=== PATIENT | male | born 1995 | race Caucasian/White ===

== ENCOUNTER 2016-05-24 19:00 | Emergency (ER) | payer MEDICAID ==
[~2016-05-24] VITALS: Ht 180.3 cm; Wt 101.2 kg
[~2016-05-24 19:00] MED LIST: ACHD5005 PO; AMOX500C2 PO; AMPH20TA2 PO; AMPH25CA3 PO; BPR75T PO; BUPR150T7 PO; CEPH-38 PO; DOCU-143 PO; HYDR-3583 PO; HYDR-3730 PO; HYDR-3812 PO; HYDR1TAB PO; INDO25CA PO; LISDEXAMFETAMINE; NF-ADDXR30 PO; SULF1TAB35 PO; TRAM50TA2 PO
--- OUTSIDE RECORDS SUMMARY | 2016-05-24 19:09 | XMS REPORT | Continuity of Care Document ---
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 ENCOUNTER FOR SCREENING FOR OTHER BACTER 07/14/2015 JAUN DARDEN MD Ot L05.91 PILONIDAL CYST WITHOUT ABSCESS 07/22/2015 HUSSAIN DARDEN MDKI Ot L05.91 PILONIDAL CYST WITHOUT ABSCESS 07/25/2015 KATALINA LAN, JAUN Ot L05.91 PILONIDAL CYST WITHOUT ABSCESS 09/09/2015 DALJIT LAN, JOEL Parks Ot 685.1 PILONIDAL CYST W/O ABSC 09/09/2015 DALJIT LAN, JOEL Parks Ot V72.83 EXAM PRE-OPERATIVE NEC 09/09/2015 DALJIT LAN, JOEL Parks Ot V74.8 SCREEN-BACTERIAL DIS NEC 09/09/2015 DALJIT LAN, JOEL Parks Ot 685.0 PILONIDAL CYST W ABSCESS 09/09/2015 DALJIT LAN, JOEL Parks Ot 685.1 PILONIDAL CYST W/O ABSC 09/09/2015 JOEL BOCANEGRA MD Ot V72.84 EXAM PRE-OPERATIVE NOS 09/09/2015 RENZO SINGH Mendez Ot F10.10 ALCOHOL ABUSE, UNCOMPLICATED 09/09/2015 RENZO SINGH K Ot F12.10 CANNABIS ABUSE, UNCOMPLICATED 09/09/2015 RENZO SINGH Mendez Ot F17.210 NICOTINE DEPENDENCE, CIGARETTES, UNCOMPL 09/09/2015 RENZO SINGH Vanessa Ot R07.89 OTHER CHEST PAIN 09/14/2015 RENZO SINGH Mendez Ot F10.10 ALCOHOL ABUSE, UNCOMPLICATED 09/14/2015 RENZO SINGH Vanessa Ot F12.10 CANNABIS ABUSE, UNCOMPLICATED 09/14/2015 RENZO SINGH Mendez Ot F17.210 NICOTINE DEPENDENCE, CIGARETTES, UNCOMPL 09/14/2015 RENZO DO SINGH Mendez Ot R07.89 OTHER CHEST PAIN 11/15/2015 DALJIT LAN, JOEL Parks Ot 685.1 PILONIDAL CYST W/O ABSC 11/15/2015 DALJIT LAN, JOEL Parks Ot V72.83 EXAM PRE-OPERATIVE NEC 11/15/2015 DALJIT LAN, JOEL Parks Ot V74.8 SCREEN-BACTERIAL DIS NEC 11/15/2015 DALJIT LAN, JOEL Parks Ot 685.0 PILONIDAL CYST W ABSCESS 11/15/2015 JOEL BOCANEGRA MD Ot 685.1 PILONIDAL CYST W/O ABSC 11/15/2015 JOEL BOCANEGRA MD Ot V72.84 EXAM PRE-OPERATIVE NOS 11/16/2015 WILLIE SORIANO DO Ot K37 UNSPECIFIED APPENDICITIS 11/21/2015 WILLIE SORIANO DO Ot K37 UNSPECIFIED APPENDICITIS 11/22/2015 WILLIE SORIANO DO Ot K37 UNSPECIFIED APPENDICITIS 05/24/2016 DALJIT LAN, JOLE Parks Ot 685.1 PILONIDAL CYST W/O ABSC 05/24/2016 JOEL BOCANEGRA MD Ot V72.83 EXAM PRE-OPERATIVE NEC 05/24/2016 DALJIT LAN, JOEL Parks Ot V74.8 SCREEN-BACTERIAL DIS NEC 05/24/2016 JOEL BOCANEGRA MD Ot 685.0 PILONIDAL CYST W ABSCESS 05/24/2016 JOEL BOCANEGRA MD Ot 685.1 PILONIDAL CYST W/O ABSC 05/24/2016 JOEL BOCANEGRA MD Ot V72.84 EXAM PRE-OPERATIVE NOS Procedures Code [place] [address] PSYCH DIAGNOSTIC EVALUATION 11/28/2012 69207 ROUTINE VENIPUNCTURE 12/09/2012 11518 PURE TONE HEARING TEST AIR 12/09/2012 92700 CBC 12/09/2012 41761 LIPID PANEL 12/09 94792 CMP 12/09/2012 67189 TSH 12/09/2012 86.22 EXCIS DEBRIDE OF WOUND, INFECT, OR BURN 01/02/2013 93.57 DRESSING OF WOUND NEC 01/04/2013 93.57 DRESSING OF WOUND NEC 01/05/2013 93.57 DRESSING OF WOUND NEC 01/06/2013 93.57 DRESSING OF WOUND NEC 01/07/2013 Results Test Result Range Complete blood count (CBC) with automated white blood cell (WBC) differential - 11/15/15 10:28 Blood leukocytes automated count (number/volume) 17.7 10*3/ uL 4.3-11.0 Blood erythrocytes automated count (number/volume) 5.37 10*6 /uL 4.35-5.85 Venous blood hemoglobin measurement (mass/volume) 16.7 g/dL 13.3-17.7 Blood hematocrit (volume fraction) 46 % 40-54 Automated erythrocyte mean corpuscular volume 86 [foz_us] 80-99 Automated erythrocyte mean corpuscular hemoglobin (mass per erythrocyte) 31 pg 25-34 Automated erythrocyte mean corpuscular hemoglobin concentration measurement ( mass/volume) 36 g/dL 32-36 Automated erythrocyte distribution width ratio 12.4 % 10.0-14.5 Automated blood platelet count (count/volume) 337 10*3/uL 130-400 Automated blood platelet mean volume measurement 10.8 [foz_ us] 7.4-10.4 Automated blood neutrophils/100 leukocytes 80 % 42-75 Automated blood lymphocytes/100 leukocytes 11 % 12-44 Blood monocytes/100 leukocytes 8 % 0-12 Automated blood eosinophils/100 leukocytes 1 % 0-10 Automated blood basophils/100 leukocytes 0 % 0-10 Blood neutrophils automated count (number/volume) 14.2 10*3 1.8-7.8 Blood lymphocytes automated count (number/volume) 1.9 10*3 1.0-4.0 Blood monocytes automated count (number/volume) 1.4 10*3 0.0-1.0 Automated eosinophil count 0.1 10*3/uL 0.0-0.3 Automated blood basophil count (count/volume) 0.0 10*3/uL 0.0-0.1 Comprehensive metabolic panel - 11/15/15 10:28 Serum or plasma sodium measurement (moles/volume) 139 mmol/ L 135-145 Serum or plasma potassium measurement (moles/volume) 3.8 mmol/L 3.6-5.0 Serum or plasma chloride measurement (moles/volume) 108 mmol /L 98-107 Carbon dioxide 18 mmol/L 21-32 Serum or plasma anion gap determination (moles/volume) 13 mmol/L 5-14 Serum or plasma urea nitrogen measurement (mass/volume) 14 mg/dL 7-18 Serum or plasma creatinine measurement (mass/volume) 0.76 mg /dL 0.60-1.30 Serum or plasma urea nitrogen/creatinine mass ratio 18 NRG Serum or plasma creatinine measurement with calculation of estimated glomerular filtration rate > NRG Serum or plasma glucose measurement (mass/volume) 101 mg/dL 70-105 Serum or plasma calcium measurement (mass/volume) 9.8 mg/dL 8.5-10.1 Serum or plasma total bilirubin measurement (mass/volume) 0.6 mg/dL 0.1-1.0 Serum or plasma alkaline phosphatase measurement (enzymatic activity/volume) 96 U/L 40-136 Serum or plasma aspartate aminotransferase measurement (enzymatic activity/ volume) 27 U/L 5-34 Serum or plasma alanine aminotransferase measurement (enzymatic activity/volume ) 45 U/L 0-55 Serum or plasma protein measurement (mass/volume) 7.8 g/dL 6.4-8.2 Serum or plasma albumin measurement (mass/volume) 4.9 g/dL 3.2-4.5 Blood manual differential performed detection - 11/15/15 10:28 Blood monocytes/100 leukocytes 5 % NRG Manual blood segmented neutrophils/100 leukocytes 78 % NRG Blood band neutrophils/100 leukocytes 2 % NRG Manual blood lymphocytes/100 leukocytes 15 % NRG Manual eosinophils/100 leukocytes in nose 0 % NRG Manual blood basophils/100 leukocytes 0 % NRG Blood erythrocyte morphology finding identification NORMAL NRG Complete urinalysis with reflex to culture - 11/15/15 10:50 Urine color determination YELLOW NRG Urine clarity determination SLIGHTLY CLOUDY NRG Urine pH measurement by test strip 5 5- 9 Specific gravity of urine by test strip 1.030 1.016-1.022 Urine protein assay by test strip, semi-quantitative 1+ NEGATIVE Urine glucose detection by automated test strip NEGATIVE NEGATIVE Erythrocytes detection in urine sediment by light microscopy NEGATIVE NEGATIVE Urine ketones detection by automated test strip NEGATIVE NEGATIVE Urine nitrite detection by test strip NEGATIVE NEGATIVE Urine total bilirubin detection by test strip NEGATIVE NEGATIVE Urine urobilinogen measurement by automated test strip (mass/volume) NORMAL NORMAL Urine leukocyte esterase detection by dipstick 1+ NEGATIVE Automated urine sediment erythrocyte count by microscopy (number/high power field) NONE NRG Automated urine sediment leukocyte count by microscopy (number/high power field ) [HPF] NRG Bacteria detection in urine sediment by light microscopy TRACE NRG Crystals detection in urine sediment by light microscopy NONE NRG Casts detection in urine sediment by light microscopy NONE NRG Mucus detection in urine sediment by light microscopy MODERATE NRG Complete urinalysis with reflex to culture NO NRG Urine drug screening test - 11/15/15 10:50 Urine phencyclidine detection by screening method NEGATIVE NEGATIVE Urine benzodiazepines detection by screening method NEGATIVE NEGATIVE Urine cocaine detection NEGATIVE NEGATIVE Urine amphetamines detection by screening method NEGATIVE NEGATIVE Urine methamphetamine detection by screening method NEGATIVE NEGATIVE Urine cannabinoids detection by screening method POSITIVE NEGATIVE Urine opiates detection by screening method NEGATIVE NEGATIVE Urine barbiturates detection NEGATIVE NEGATIVE Screening urine tricyclic antidepressants detection NEGATIVE NEGATIVE Urine methadone detection by screening method NEGATIVE NEGATIVE Urine oxycodone detection NEGATIVE NEGATIVE Urine propoxyphene detection NEGATIVE NEGATIVE Urine buprenophrine screen NEGATIVE NEGATIVE Methicillin resistant Staphylococcus aureus (MRSA) screening culture - 13:35 Methicillin resistant Staphylococcus aureus (MRSA) screening culture NEG NRG Encounters ACCT No. Visit Date/Time Discharge Status Pt. Type Provider Facility Loc./Unit Complaint [id number] 03/08/2014 10:51:00 03/08/2014 23: 59:59 CLS Outpatient FREDIS YARBROUGH APRN [id number] 02/24/2014 10:42:00 02/24/2014 23: 59:59 CLS Outpatient HOA JEREMIAS QUINTERO Sarah [id number] 10/21/2013 11:51:00 10/21/2013 23: 59:59 CLS Outpatient BE MCNULTY APRN [id number] 06/11/2013 15:25:00 06/11/2013 23: 59:59 CLS Outpatient BE MCNULTY APRN [id number] 12/19/2012 15:40:00 12/19/2012 23: 59:59 CLS Outpatient KERRI FINLEY DO [id number] 12/09/2012 07:54:00 12/09/2012 23: 59:59 CLS Outpatient ENEIDA PIÑA PA-C [id number] 11/27/2012 11:54:00 11/27/2012 23: 59:59 CLS Outpatient JUAN SHEPARD, PEDRO A [id number] 04/22/2012 15:48:00 04/22/2012 23: 59:59 CLS Outpatient BE MCNULTY APRN [id number] 03/31/2012 14:57:00 03/31/2012 23: 59:59 CLS Outpatient [id number] 10/24/2011 13:22:00 10/24/2011 23: 59:59 CLS Outpatient [id number] 07/02/2012 10:56:00 Document Registration
--- NOTE | 2016-05-24 19:40 | Diagnostic Imaging Report ---
Indication: Right elbow injury during skateboarding. Discussion: Three views of the right elbow were obtained, no comparison. Large elbow effusion is present. Suspect nondisplaced right radial head neck fracture. No dislocation. The joint spaces are well-maintained. No radiopaque foreign body. Impression: 1. Suspect nondisplaced proximal radial neck fracture. 2. Large right elbow effusion. Dictated by: Dictated on workstation # [id number]
--- NOTE | 2016-05-24 19:45 | ED Upper Extremity ---
General Chief Complaint: Upper Extremity Stated Complaint: RIGHT ARM INJ Nursing Triage Note: PT REPORTS WAS "RIDING HIS LONG BOARD" WHEN HE FELL ONTO HIS RT ELBOW. NO OBVIOUS DEFORMITY NOTED AT THIS TIME. Nursing Sepsis Screen: No Definite Risk History of Present Illness Time seen by provider: 19:10 Initial Comments Evaluation for right elbow pain, abrasion right proximal tibia and right palm after falling while on his long board. He is right-hand dominant. Onset: just prior to arrival Pain/Injury Location: right elbow Method of Injury: fell Modifying Factors: Improves With Immobilization Associated Symptoms: his tetanus status is not current. Allergies and Home Medications Allergies Coded Allergies: No Known Drug Allergies (Unverified , 04/24/09) Home Medications Docusate Sodium 100 Mg Capsule #60 100 MG PO BID Prescribed by: MARTIR MARIE on 11/16/15 1033 Hydrocodone/Acetaminophen 1 Each Tablet #30 1 TAB PO Q4H PRN PRN MODERATE PAIN Prescribed by: MARTIR MARIE on 11/16/15 1033 Constitutional: no symptoms reported see HPI EENTM: see HPI Respiratory: no symptoms reported see HPI Cardiovascular: no symptoms reported see HPI Gastrointestinal: no symptoms reported Genitourinary: no symptoms reported see HPI Musculoskeletal: see HPI joint pain (right elbow) joint swelling (right elbow) Skin: see HPI other (abrasion right proximal tibia and palm right hand) Psychiatric/Neurological: No Symptoms Reported See HPI All Other Systems Reviewed Negative Unless Noted: Yes Past Tixdjxu-Qfkicl-Uqouoz Hx Patient Social History Alcohol Use: Denies Use Recreational Drug Use: No Drug of Choice: MARIJUANA Smoking Status: Former Smoker Type Used: Cigarettes Recent Foreign Travel: No Contact w/Someone Who Travel: No Recent Infectious Disease Expo: No Recent Hopitalizations: No Immunizations Up To Date Tetanus Booster (TDap): Less than 5yrs PED Vaccines UTD: Yes Date of Pneumonia Vaccine: Jan 07, 2013 Date of Influenza Vaccine: Nov 09, 2014 Seasonal Allergies Seasonal Allergies: No Surgeries HX Surgeries: Yes (PILONIDAL CYST/ABSCESS x2, DENTAL SURGERY,) Respiratory Hx Respiratory Disorders: Yes (X 1 ACUTE BRONCHITIS) Respiratory Disorders: Chronic Bronchitis Cardiovascular Hx Cardiac Disorders: Yes (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 ) Neurological Hx Neurological Disorders: No Reproductive System Hx Reproductive Disorders: No Sexually Transmitted Disease: No HIV/AIDS: No Genitourinary Hx Genitourinary Disorders: No Gastrointestinal Hx Gastrointestinal Disorders: No Musculoskeletal Hx Musculoskeletal Disorders: No Endocrine Hx Endocrine Disorders: No HEENT HX ENT Disorders: No Cancer Hx Cancer: No Psychosocial Hx Psychiatric Problems: Yes (DOES NOT COMPLY WITH MEDICATIONS) Behavioral Health Disorders: ADD/ADHD, Depression Integumentary HX Skin/Integumentary Disorder: Yes (PILONIDAL CYST/ABSCESS) Blood Transfusions Hx Blood Disorders: No Adverse Reaction to a Blood Tr: No Reviewed Nursing Assessment Reviewed/Agree w Nursing PMH: Yes Family Medical History Significant Family History: No Pertinent Family Hx Family Medial History: FH: lung cancer grandmother Physical Exam Vital Signs Vital Sign - Last 12Hours 05/24/16 19:10 Temp 98.0 Pulse 105 Resp 20 B/P 131/92 Pulse Ox 99 O2 Delivery Room Air Capillary Refill : Less Than 3 Seconds General Appearance: WD/WN no apparent distress HEENT: PERRL/EOMI normal ENT inspection TMs normal pharynx normal Neck: non-tender full range of motion supple normal inspection Cardiovascular: normal peripheral pulses regular rate, rhythm no murmur Respiratory: chest non-tender lungs clear normal breath sounds Gastrointestinal: normal bowel sounds non tender soft Back: normal inspection no CVA tenderness no vertebral tenderness Elbow/Forearm: normal inspection, Right, bone tenderness (radial head), limited ROM (secondary to pain), pain, soft tissue tenderness Neurologic/Tendon: normal sensation normal motor functions normal tendon functions Neurologic/Psychiatric: no motor/sensory deficits alert normal mood/affect oriented x 3 Skin: normal color warm/dry other (superficial abrasion to the right proximal tibia and small abrasion to the right palm. Area to the right palm has firmness and possible foreign body noted. Patient does report falling in an area where there were several small rocks.) Lymphatic: no adenopathy I&D : Site: right palm I & D Procedure: betadine prep sterile drapes applied sterile dressing applied Progress Tried to explore the abrasion, patient didn't tolerate secondary to pain. 1 ml of Lidocaine 1% used to anesthetize the skin. The abrasion was then explored, one small pebble was easily removed. The skin was thoroughly irrigated with 200 mils of sterile normal saline. Patient tolerated the procedure well. Progress/Results/Core Measures Results/Orders My Orders Orders-JAZZY LUNDBERG Elbow, Right, 3 Views (05/24/16 19:19) Dipht,Pertuss(Acell),Tet Adult (Boostrix (05/24/16 20:00) Lidocaine 1% Injection (Xylocaine 1% Inj (05/24/16 20:04) Medications Given in ED Current Medications Medications Dose Ordered Sig/Ericka Route Start Time Stop Time Status Last Admin Dose Admin Diphtheria/ Tetanus/Acell Pertussis 0.5 ml ONCE ONCE IM 05/24/16 20:00 05/24/16 20:01 DC 05/24/16 20:05 0.5 ML Vital Signs/I&O Vital Sign - Last 12Hours 05/24/16 05/24/16 19:10 20:50 Temp 98.0 Pulse 105 0 Resp 20 0 B/P 131/92 Pulse Ox 99 0 O2 Delivery Room Air Blood Pressure Mean: 105 Progress Note : Time: 19:10 Progress Note Initial evaluation completed, recommended x-ray of the right elbow, will reevaluate after this is going completed. 1939 Discussed x-ray findings with the patient, nondisplaced radial head fracture with positive fat pad sign noted dislocations noted. 1999 abrasion to the right proximal tibia thoroughly irrigated with 200 mls of sterile normal saline. Triple antibiotic ointment and a nonadherent bulky dressing were applied. Diagnostic Imaging Diagonstic Imaging: Xray Plain Films/CT/US/NM/MRI: elbow Comments NAME: REBECCA HORVATH [facility] REC#: [id number] PT STATUS: REG ER : 1995 PHYSICIAN: JAZZY LUNDBERG ADMIT DATE: 05/24/16/ER Draft Date of Exam:05/24/16 ELBOW, RIGHT, 3 VIEWS Indication: Right elbow injury during skateboarding. Discussion: Three views of the right elbow were obtained, no comparison. Large elbow effusion is present. Suspect nondisplaced right radial head neck fracture. No dislocation. The joint spaces are well-maintained. No radiopaque foreign body. Impression: 1. Suspect nondisplaced proximal radial neck fracture. 2. Large right elbow effusion. Dictated on workstation # [id number] Dict: 05/24/161936 Trans: 05/24/161938 ARMANI [id number] Interpreted by: MIGUEL SY MD Electronically signed by: Departure Impression Impression: Primary Impression: Radial head fracture, closed Qualified Code: S52.124A - Nondisplaced fracture of head of right radius, initial encounter for closed fracture Additional Impression: Abrasion Disposition: 01 HOME, SELF-CARE Condition: Stable Departure-Patient Inst. Referrals: [facility] (PCP/Family) Primary Care Physician Patient Instructions: How to Use a Shoulder Sling, Elbow Fracture (DC) Add. Discharge Instructions: All discharge instructions reviewed with patient and/or family. Voiced understanding. Hi wrap to right elbow when awake, for the next week. Right elbow 20 minutes every 2 hours. Use sling when active, may remove at night for sleeping. Follow-up with orthopedics in one week, see list of local physicians. Clean abrasion to right hand and right leg with peroxide twice a day and apply triple antibiotic treatment. Return to emergency room for increased pain, concerning drainage from right hand or right leg or any new concerns. Tylenol 650 mg every 6 hours, alternating with ibuprofen 600 mg every 8 hours for pain Scripts Tramadol HCl (Ultram)50 Mg [id number] Mg PO Q8H Pain #20 TAB Ref 0 Prov:JAZZY LUNDBERG 05/24/16 Work/School Note: Local Medical Staff Listing, Work Release Form Date Seen in the Emergency Department: May 24, 2016 Return to Work: May 26, 2016 Other Restrictions Listed Below: No use of right arm for 3-4 weeks. Must wear sling. JAZZY LUNDBERG May 24, 2016 19:45
[2016-05-24] MEDS ORDERED: TETANUS,DIPTH,PERTUSS P/F (BOOSTRIX) 0.5 ML VIAL IM ONE (20:00)
[2016-05-24] MEDS ORDERED: LIDOCAINE 1% INJ 20 ML (XYLOCAINE) VIAL INJ STA (20:04)
[2016-05-24 20:50] VITALS: BP 0/0
[2016-05-24] MEDS ORDERED: TRAM-42 PO (23:06)
== END 2016-05-24 20:50 | disposition home or self-care (01) ==
LOC: EDUNIT# 19:00 → ER 19:02
DX: S52.124A Nondisplaced fracture of head of right radius, initial encounter for closed fracture (principal); S60.511A Abrasion of right hand, initial encounter; S50.311A Abrasion of right elbow, initial encounter; M25.421 Effusion, right elbow; Z23 Encounter for immunization; V00.131A Fall from skateboard, initial encounter; Y93.51 Activity, roller skating (inline) and skateboarding; Y99.8 Other external cause status
CPT/HCPCS: 73080; 90471; 90715; 99283

== ENCOUNTER 2017-04-09 20:38 | Emergency (ER) | payer SELFPAY ==
[~2017-04-09] VITALS: Ht 180.3 cm; Wt 98.4 kg
[~2017-04-09 20:38] MED LIST changes: -HYDR-3812 PO; +TRAM-42 PO
--- OUTSIDE RECORDS SUMMARY | 2017-04-09 20:43 | XMS REPORT ---
Author PRINCESS Rosado Organization [employer] Address Unknown Phone Unavailable Care Team Providers Care Laboratory Cureman Name Role Phone PRINCESS GASPAR CP Unavailable Allergies No Known Allergies Problems Problem Type Condition Code Onset Dates Condition Status Problem 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 Active Problem Vomiting alone 787.03 Active Problem Allergic rhinitis, cause unspecified 477.9 Active Problem Acute pharyngitis 462 Active Problem Cough 786.2 Active Problem Pilonidal cyst without mention of abscess 685.1 Active Problem Cellulitis and abscess of unspecified site 682.9 Active Problem Other, multiple, and unspecified sites, insect bite, nonvenomous, without mention of infection 919.4 Active Problem Rash and other nonspecific skin eruption 782.1 Active Problem Depressive disorder, not elsewhere classified 311 Active Problem Viral warts, unspecified 078.10 Active Problem Other psoriasis 696.1 Active Problem Plantar fascial fibromatosis 728.71 Active Problem Acute upper respiratory infections of unspecified site 465.9 Active Problem Esophageal reflux 530.81 Active Medications Medication Code System Code Instructions Start Date End Date Status Dosage Adderall XR [facility] [address]-30 30 MG Jan 23, 2016 TAKE TWO CAPSULES BY MOUTH ONCE DAILY FOR ADHD Results No Known Results Summary Purpose [employer] Submission
--- OUTSIDE RECORDS SUMMARY | 2017-04-09 20:43 | XMS REPORT ---
Author Author LIDIA LARISSA Organization [facility] Address [address] [place] [address] Care Team Providers Care Hand Coremaker Name Role Phone MURILLOWANDY HarperELE Unavailable PROBLEMS Type Condition ICD9-CM Code YOX45-RA Code Onset Dates Condition Status SNOMED Code Problem Pilonidal cyst without mention of abscess 685.1 Active 74851727 Problem Esophageal reflux 530.81 Active 822723988 Problem Cellulitis and abscess of unspecified site 682.9 Active 978743254 Problem Attention deficit hyperactivity disorder (ADHD), combined type F90.2 Active 831801135 Problem Viral warts, unspecified 078.10 Active 19670648 Problem Acute pharyngitis 462 Active 502695722 Problem Acute upper respiratory infections of unspecified site 465.9 Active 12994803 Problem Depressive disorder, not elsewhere classified 311 Active 59393010 Problem Allergic rhinitis, cause unspecified 477.9 Active 76119614 Problem 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 Active Problem Cough 786.2 Active 75033254 Problem Rash and other nonspecific skin eruption 782.1 Active 400023982 Problem Other, multiple, and unspecified sites, insect bite, nonvenomous, without mention of infection 919.4 Active 259058981 Problem Plantar fascial fibromatosis 728.71 Active 67016773 Problem Vomiting alone 787.03 Active 807113245 Problem Other psoriasis 696.1 Active 0404483 ALLERGIES No Known Allergies SOCIAL HISTORY Never Assessed PLAN OF CARE Activity Details Follow Up prn Reason: VITAL SIGNS Height 70 in 2016-04-28 Weight 224.0 lbs 2016-04-28 Temperature 98.9 degrees Fahrenheit 2016-04-28 Heart Rate 76 bpm 2016-04-28 Respiratory Rate 18 2016-04-28 BMI 32.14 kg/m2 2016-04-28 Blood pressure systolic 116 mmHg 2016-04-28 Blood pressure diastolic 70 mmHg 2016-04-28 MEDICATIONS Medication Instructions Dosage Frequency Start Date End Date Duration Status Augmentin 875-125 MG Orally every 12 hrs 1 tablet 12h Apr,Apr 10 day(s) Active Adderall XR 30 MG TAKE TWO CAPSULES BY MOUTH ONCE DAILY FOR ADHD Apr 21 days Active [facility] [phone] MG Active RESULTS No Results PROCEDURES No Known procedures IMMUNIZATIONS No Known Immunizations MEDICAL (GENERAL) HISTORY Type Description Date Surgical History Appendectomy 11/2015 Hospitalization History 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
--- OUTSIDE RECORDS SUMMARY | 2017-04-09 20:43 | XMS REPORT ---
Author Author PRINCESS GASPAR Organization [employer] Address Unknown Phone Unavailable Care Team Providers Care Pile Operator Name Role Phone PRINCESS GASPAR CP Unavailable [...] End Date Status Dosage Adderall XR [facility] [address]-[address] Warren to sign for Checo Once a day for ADHD August 27, 2014 2 capsules Results No Known Results Summary Purpose [employer] Submission
--- OUTSIDE RECORDS SUMMARY | 2017-04-09 20:43 | XMS REPORT ---
Author PRINCESS Rosado Organization [employer] Address Unknown Phone Unavailable Care Team Providers Care Leverman Name Role Phone PRINCESS GASPAR CP Unavailable [...] Date End Date Status Dosage Adderall XR [facility] [address]-[address] Warren to sign for Checo Once a day for ADHD August 27, 2014 2 capsules Results No Known Results Summary Purpose [employer] Submission
--- OUTSIDE RECORDS SUMMARY | 2017-04-09 20:43 | XMS REPORT ---
Author Author PRINCESS GASPAR [facility] [employer] Address Unknown Phone Unavailable Care Team Providers Care Handbook Writer Name Role Phone PRINCESS GASPAR CP Unavailable Allergies No Known Allergies Problems Problem Type Condition ICD-9 Code Onset Dates Condition Status Problem GARDASIL [...] End Date Status Dosage Adderall XR [facility] [address]-99 30 MG Orally Once a day for ADHD August 27, 2014 2 capsules Results No Known Results Summary Purpose [employer] Submission
--- OUTSIDE RECORDS SUMMARY | 2017-04-09 20:43 | XMS REPORT ---
Author Author PRINCESS Irby Organization [facility] Address Unknown Care Team Providers Care Bow Maker Machine Tender Name Role Phone PRINCESS Irby Unavailable PROBLEMS Type Condition ICD9-CM Code [id number] Code Onset Dates Condition Status SNOMED Code Problem Pilonidal cyst without mention of abscess 685.1 Active 72778353 Problem Esophageal reflux 530.81 Active 069104728 Problem Cellulitis and abscess of unspecified site 682.9 Active 286548164 Problem Attention deficit hyperactivity disorder (ADHD), combined type F90.2 Active 474627485 Problem Viral warts, unspecified 078.10 Active 18898253 Problem Acute pharyngitis 462 Active 928018311 Problem Acute upper respiratory infections of unspecified site 465.9 Active 43524289 Problem Depressive disorder, not elsewhere classified 311 Active 22627042 Problem Allergic rhinitis, cause unspecified 477.9 Active 04477737 Problem 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 Active Problem Cough 786.2 Active 31374043 Problem Rash and other nonspecific skin eruption 782.1 Active 007725561 Problem Other, multiple, and unspecified sites, insect bite, nonvenomous, without mention of infection 919.4 Active 142263891 Problem Plantar fascial fibromatosis 728.71 Active 46639481 Problem Vomiting alone 787.03 Active 231790282 Problem Other psoriasis 696.1 Active 5035894 ALLERGIES Unknown Allergies SOCIAL HISTORY No smoking Hx information available PLAN OF CARE VITAL SIGNS MEDICATIONS Medication Instructions Dosage Frequency Start Date End Date Duration Status Adderall XR 30 MG TAKE TWO CAPSULES BY MOUTH ONCE DAILY FOR ADHD Apr 21 days Active RESULTS No Results PROCEDURES No Known procedures IMMUNIZATIONS No Known Immunizations
--- OUTSIDE RECORDS SUMMARY | 2017-04-09 20:43 | XMS REPORT ---
Author Author PRINCESS Irby Organization [facility] Address Unknown Care Team Providers Care Vice President Integrated Name Role Phone PRINCESS Irby Unavailable PROBLEMS Type Condition ICD9-CM Code [id number] Code Onset Dates Condition Status SNOMED Code Problem Pilonidal cyst without mention of abscess 685.1 Active 51546718 Problem Esophageal reflux 530.81 Active 443571735 Problem Cellulitis and abscess of unspecified site 682.9 Active 876563930 Problem Attention deficit hyperactivity disorder (ADHD), combined type F90.2 Active 707892390 Problem Viral warts, unspecified 078.10 Active 14254137 Problem Acute pharyngitis 462 Active 431868631 Problem Acute upper respiratory infections of unspecified site 465.9 Active 70845865 Problem Depressive disorder, not elsewhere classified 311 Active 99669279 Problem Allergic rhinitis, cause unspecified 477.9 Active 95175399 Problem 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 Active Problem Cough 786.2 Active 74585695 Problem Rash and other nonspecific skin eruption 782.1 Active 168868506 Problem Other, multiple, and unspecified sites, insect bite, nonvenomous, without mention of infection 919.4 Active 554157821 Problem Plantar fascial fibromatosis 728.71 Active 86500257 Problem Vomiting alone 787.03 Active 587777766 Problem Other psoriasis 696.1 Active 4116300 ALLERGIES No Information SOCIAL HISTORY Never Assessed PLAN OF CARE VITAL SIGNS MEDICATIONS Medication Instructions Dosage Frequency Start Date End Date Duration Status Adderall XR 30 MG TAKE TWO CAPSULES BY MOUTH ONCE DAILY FOR ADHD Apr 28 days Active RESULTS No Results PROCEDURES No Known procedures IMMUNIZATIONS No Known Immunizations MEDICAL (GENERAL) HISTORY Type Description Date Surgical History Appendectomy 11/2015 Hospitalization History 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
--- OUTSIDE RECORDS SUMMARY | 2017-04-09 20:43 | XMS REPORT ---
Author Author PRINCESS GASPAR Organization [facility] Address Unknown Care Team Providers Care Lead Shop Operator Name Role Phone PRINCESS GASPAR Unavailable PROBLEMS Type Condition ICD9-CM Code UQQ18-CL Code Onset Dates Condition Status SNOMED Code Problem Allergic rhinitis, cause unspecified 477.9 Active 55785633 Problem Other, multiple, and unspecified sites, insect bite, nonvenomous, without mention of infection 919.4 Active 237794857 Problem Vomiting alone 787.03 Active 820715742 Problem Pilonidal cyst without mention of abscess 685.1 Active 25319854 Problem Acute pharyngitis 462 Active 770069255 Problem Depressive disorder, not elsewhere classified 311 Active 58633609 Problem Cellulitis and abscess of unspecified site 682.9 Active 458837556 Problem Cough 786.2 Active 23947679 Problem Rash and other nonspecific skin eruption 782.1 Active 701998480 Assessment Attention deficit hyperactivity disorder (ADHD), combined type F90.2 Nov, Active 157445357 Problem Other psoriasis 696.1 Active 7990603 Problem Plantar fascial fibromatosis 728.71 Active 14665276 Problem Acute upper respiratory infections of unspecified site 465.9 Active 75456270 Problem Esophageal reflux 530.81 Active 807600653 Problem Viral warts, unspecified 078.10 Active 43422373 Problem 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 Unknown Non Drug Allergy Nov, Unknown SOCIAL HISTORY No smoking Hx information available PLAN OF CARE VITAL SIGNS Height 70 in 2015-11-28 Weight 208.6 lbs 2015-11-28 Heart Rate 68 bpm 2015-11-28 Respiratory Rate 18 2015-11-28 BMI 29.93 kg/m2 2015-11-28 Blood pressure systolic 100 mmHg 2015-11-28 Blood pressure diastolic 64 mmHg 2015-11-28 MEDICATIONS Medication Instructions Dosage Frequency Start Date End Date Duration Status Adderall XR 30 MG TAKE TWO CAPSULES BY MOUTH ONCE DAILY FOR ADHD Active Hydrocodone-Acetaminophen 5-325 MG Orally every 6 hrs 1 tablet as needed 6h Active RESULTS No Results PROCEDURES Procedure Date Ordered Related Diagnosis Body Site Office Visit, Est Pt., Level 3 Nov 28, 2015 IMMUNIZATIONS No Known Immunizations
--- OUTSIDE RECORDS SUMMARY | 2017-04-09 20:43 | XMS REPORT ---
Author PRINCESS Rosado Organization [employer] Address Unknown Phone Unavailable Care Team Providers Care Able Bodied Watchman Name Role Phone PRINCESS GASPAR CP Unavailable [...] Date End Date Status Dosage Adderall XR [facility] [address]-[address] Warren to sign for [place] Once a day for ADHD August 27, 2014 2 capsules Results No Known Results Summary Purpose [employer] Submission
--- OUTSIDE RECORDS SUMMARY | 2017-04-09 20:43 | XMS REPORT ---
Author Author PRINCESS Irby Organization [facility] Address Unknown Care Team Providers Care Nursing Director Name Role Phone PRINCESS Irby Unavailable PROBLEMS Type Condition ICD9-CM Code HMQ00-DD Code Onset Dates Condition Status SNOMED Code Problem Pilonidal cyst without mention of abscess 685.1 Active 37612454 Problem Esophageal reflux 530.81 Active 863901371 Problem Cellulitis and abscess of unspecified site 682.9 Active 401092491 Problem Attention deficit hyperactivity disorder (ADHD), combined type F90.2 Active 635767042 Problem Viral warts, unspecified 078.10 Active 97134277 Problem Acute pharyngitis 462 Active 620183148 Problem Acute upper respiratory infections of unspecified site 465.9 Active 74550844 Problem Depressive disorder, not elsewhere classified 311 Active 19946857 Problem Allergic rhinitis, cause unspecified 477.9 Active 69892526 Problem 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 Active 599197856 Problem Cough 786.2 Active 36968622 Problem Rash and other nonspecific skin eruption 782.1 Active 838772837 Problem Other, multiple, and unspecified sites, insect bite, nonvenomous, without mention of infection 919.4 Active 227752295 Problem Plantar fascial fibromatosis 728.71 Active 00282051 Problem Vomiting alone 787.03 Active 808425000 Problem Other psoriasis 696.1 Active 1578884 ALLERGIES No Information SOCIAL HISTORY Never Assessed PLAN OF CARE VITAL SIGNS MEDICATIONS Medication Instructions Dosage Frequency Start Date End Date Duration Status Adderall XR 30 MG Orally Once a day 2 capsules 24h July, 28 days Active RESULTS No Results PROCEDURES No Known procedures IMMUNIZATIONS No Known Immunizations MEDICAL (GENERAL) HISTORY Type Description Date Surgical History Appendectomy 11/2015 Hospitalization History 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
--- OUTSIDE RECORDS SUMMARY | 2017-04-09 20:44 | XMS REPORT ---
Author Author PRINCESS Irby Organization [facility] Address Unknown Care Team Providers Care Employee Health Rn Name Role Phone PRINCESS Irby Unavailable PROBLEMS Type Condition ICD9-CM Code PQP99-IQ Code Onset Dates Condition Status SNOMED Code Problem Pilonidal cyst without mention of abscess 685.1 Active 09203425 Problem Esophageal reflux 530.81 Active 213224515 Problem Cellulitis and abscess of unspecified site 682.9 Active 775147873 Problem Attention deficit hyperactivity disorder (ADHD), combined type F90.2 Active 822110135 Problem Viral warts, unspecified 078.10 Active 86720163 Problem Acute pharyngitis 462 Active 758000882 Problem Acute upper respiratory infections of unspecified site 465.9 Active 34726966 Problem Depressive disorder, not elsewhere classified 311 Active 09399694 Problem Allergic rhinitis, cause unspecified 477.9 Active 91174399 Problem 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
--- OUTSIDE RECORDS SUMMARY | 2017-04-09 20:44 | XMS REPORT ---
Author PRINCESS Rosado Organization [employer] Address Unknown Phone Unavailable Care Team Providers Care Tool/Die Maker Name Role Phone PRINCESS GASPAR CP Unavailable [...] Dosage Adderall XR [facility] [address]-79 30 MG TAKE TWO CAPSULES BY MOUTH ONCE DAILY FOR ADHD Results No Known Results Summary Purpose [employer] Submission
--- OUTSIDE RECORDS SUMMARY | 2017-04-09 20:44 | XMS REPORT ---
Author Author PRINCESS Irby Organization [facility] Address Unknown Care Team Providers Care Production Leader Name Role Phone PRINCESS Irby Unavailable PROBLEMS Type Condition ICD9-CM Code HMJ63-BZ Code Onset Dates Condition Status SNOMED Code Problem Pilonidal cyst without mention of abscess 685.1 Active 88630069 Problem Esophageal reflux 530.81 Active 986494553 Problem Cellulitis and abscess of unspecified site 682.9 Active 639282408 Problem Attention deficit hyperactivity disorder (ADHD), combined type F90.2 Active 078507033 Problem Viral warts, unspecified 078.10 Active 09610576 Problem Acute pharyngitis 462 Active 805938251 Problem Acute upper respiratory infections of unspecified site 465.9 Active 93196430 Problem Depressive disorder, not elsewhere classified 311 Active 12842972 Problem Allergic rhinitis, cause unspecified 477.9 Active 23113854 Problem 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 Active Problem Cough 786.2 Active 24581621 Problem Rash and other nonspecific skin eruption 782.1 Active 990566138 Problem Other, multiple, and unspecified sites, insect bite, nonvenomous, without mention of infection 919.4 Active 968728359 Problem Plantar fascial fibromatosis 728.71 Active 35068030 Problem Vomiting alone 787.03 Active 377109820 Problem Other psoriasis 696.1 Active 9399037 ALLERGIES No Information SOCIAL HISTORY Never Assessed PLAN OF CARE VITAL SIGNS MEDICATIONS Medication Instructions Dosage Frequency Start Date End Date Duration Status Adderall XR 30 MG TAKE TWO CAPSULES BY MOUTH ONCE DAILY FOR ADHD May 28 days Active RESULTS No Results PROCEDURES No Known procedures IMMUNIZATIONS No Known Immunizations MEDICAL (GENERAL) HISTORY Type Description Date Surgical History Appendectomy 11/2015 Hospitalization History 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
--- OUTSIDE RECORDS SUMMARY | 2017-04-09 20:45 | XMS REPORT ---
Author PRINCESS Rosado Organization [employer] Address Unknown Phone Unavailable Care Team Providers Care Pattern Finisher Name Role Phone PRINCESS GASPAR CP Unavailable [...] Active Problem Esophageal reflux 530.81 Active Medications No Known Medications Results No Known Results Summary Purpose [employer] Submission
--- OUTSIDE RECORDS SUMMARY | 2017-04-09 20:45 | XMS REPORT ---
Author PRINCESS Rosado [facility] [employer] Address Unknown Phone Unavailable Care Team Providers Care Flight Operations Manager Name Role Phone PRINCESS GASAPR CP Unavailable Allergies, Adverse Reactions, Alerts Substance Reaction Event Type N.K.D.A. Info Not Available Non Drug Allergy Problems Problem Type Condition Code Onset Dates [...] 078.10 Active Problem Other psoriasis 696.1 Active Assessment Attention deficit hyperactivity disorder (ADHD), combined type F90.2 Active Problem Plantar fascial fibromatosis 728.71 Active Problem Acute upper respiratory infections of unspecified site 465.9 Active Problem Esophageal reflux 530.81 Active Medications Medication Code System Code Instructions Start Date End Date Status Dosage Adderall XR [facility] [address]-98 30 MG Orally Once a day for ADHD August 27, 2014 2 capsules Procedures Procedure Coding System Code Date Office Visit, Est Pt., Level 3 CPT-4 [id number] Jan 28, 2015 Vital Signs Date/Time: Jan 28, 2015 Cardiac Monitoring Heart Rate 74 bpm Weight 225.8 lbs Height 70 in Wt Percentile 97.92 % BMI 32.40 Index Blood Pressure Diastolic 60 mmHg Blood Pressure Systolic 118 mmHg BMIPercentile 97.95 % Results No Known Results Summary Purpose [employer] Submission
--- OUTSIDE RECORDS SUMMARY | 2017-04-09 20:45 | XMS REPORT ---
Author PRINCESS Rosado Organization [employer] Address Unknown Phone Unavailable Care Team Providers Care Recreation Therapy Director Name Role Phone PRINCESS GASPAR CP Unavailable [...] Date End Date Status Dosage Adderall XR [facility] [address]-96 30 MG TAKE TWO CAPSULES BY MOUTH ONCE DAILY FOR ADHD Results No Known Results Summary Purpose [employer] Submission
--- OUTSIDE RECORDS SUMMARY | 2017-04-09 20:46 | XMS REPORT | Continuity of Care Document ---
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 12/09/2012 86.22 EXCIS DEBRIDE OF WOUND, INFECT, OR BURN 01/02/2013 93.57 DRESSING OF WOUND NEC 01/04/2013 93.57 DRESSING OF WOUND NEC 01/05/2013 93.57 DRESSING OF WOUND NEC 01/06/2013 93.57 DRESSING OF WOUND NEC 01/07/2013 Results Test Result Range Complete blood count (CBC) with automated white blood cell (WBC) differential - 11/15/15 10:28 Blood leukocytes automated count (number/volume) 17.7 10*3/uL 4.3-11.0 Blood erythrocytes automated count (number/volume) 5.37 10*6/uL 4.35-5.85 Venous blood hemoglobin measurement (mass/volume) 16.7 [...] Automated blood platelet mean volume measurement 10.8 [foz_us] 7.4-10.4 Automated blood neutrophils/100 leukocytes 80 % [...] Serum or plasma sodium measurement (moles/volume) 139 mmol/L 135-145 Serum or plasma potassium measurement (moles/volume) 3.8 mmol/L 3.6-5.0 Serum or plasma chloride measurement (moles/volume) 108 mmol/L 98-107 Carbon dioxide 18 mmol/L 21-32 Serum or plasma anion gap determination (moles/volume) 13 mmol/L 5-14 Serum or plasma urea nitrogen measurement (mass/volume) 14 mg/dL 7-18 Serum or plasma creatinine measurement (mass/volume) 0.76 mg/dL 0.60-1.30 Serum or plasma urea nitrogen/creatinine mass [...] Urine pH measurement by test strip 5 5-9 Specific gravity of urine by test strip 1.030 1.016- 1.022 Urine protein assay by test strip, semi-quantitative [...] Status Pt. Type Provider Facility Loc./Unit Complaint [id number] 03/08/2014 10:51:00 03/08/2014 23:59:59 CLS Outpatient FREDIS YARBROUGH APRN [id number] 02/24/2014 10:42:00 02/24/2014 23:59:59 CLS Outpatient JEREMIAS CAMARA APRN [id number] 10/21/2013 11:51:00 10/21/2013 23:59:59 CLS Outpatient BE MCNULTY APRN [id number] 06/11/2013 15:25:00 06/11/2013 23:59:59 CLS Outpatient BE MCNULTY APRN [id number] 12/19/2012 15:40:00 12/19/2012 23:59:59 CLS Outpatient KERRI FINLEY DO [id number] 12/09/2012 07:54:00 12/09/2012 23:59:59 CLS Outpatient ENEIDA PIÑA PA-C [id number] 11/27/2012 11:54:00 11/27/2012 23:59:59 CLS Outpatient PEDRO MARTINEZ PHD [id number] 04/22/2012 15:48:00 04/22/2012 23:59:59 CLS Outpatient BE MCNULTY APRN [id number] 03/31/2012 14:57:00 03/31/2012 23:59:59 CLS Outpatient [id number] 10/24/2011 13:22:00 10/24/2011 23:59:59 CLS Outpatient [id number] 07/02/2012 10:56:00 Document Registration [id number] 05/24/2016 19:02:00 05/24/2016 20:50:00 DIS Emergency JAZZY LUNDBERGP [facility] ER RIGHT ARM INJ [id number] 11/15/2015 12:17:00 11/16/2015 17:00:00 DIS Outpatient WILLIE SORIANO DO [facility] ACUTE APPENDICITIS [id number] 09/09/2015 01:36:00 09/09/2015 03:09:00 DIS Emergency SINGH MULLER DO Vanessa [facility] ER CP [id number] 07/14/2015 08:33:00 07/14/2015 14:00:00 DIS Outpatient JAUN DARDEN MD [facility] PILIONIDAL CYST [id number] 07/12/2015 13:06:00 07/12/2015 13:30:00 DIS Outpatient JAUN DARDEN MD [facility] PREOP PILIONIDAL CYST [id number] 12/10/2014 19:20:00 12/11/2014 15:29:00 DIS Inpatient DARI LAN FACC, WICHO ROSA CCDS [facility] CSD CHEST PAIN/ PERICARDITIS/MYOCARDITIS [id number] 12/01/2014 05:24:00 12/01/2014 06:26:00 DIS Emergency SINGH MULLER DO [facility] ER HEAD INJURY [id number] 02/27/2013 08:30:00 03/02/2013 16:25:00 DIS Outpatient JOEL BOCANEGRA MD [facility] WOUNDCARE EVALUATE AND TREAT WOUND [id number] 01/03/2013 11:30:00 01/12/2013 18:35:00 DIS Inpatient JOEL BOCANEGRA MD [facility] SURGICAL PILONIDAL CYST [id number] 12/31/2012 07:11:00 12/31/2012 23:59:59 CLS Outpatient JOEL BOCANEGRA MD [facility] PREOP PILONIDAL CYST [id number] 12/01/2012 14:21:00 12/01/2012 14:58:00 DIS Emergency DRAGAN TRIMBLE [facility] ER RIGHT FOOT PAIN [id number] 11/04/2012 07:25:00 11/04/2012 08:05:00 DIS Emergency ANYI INGRAM MD [facility] ER CYST PAIN [id number] 10/01/2012 06:00:00 10/01/2012 23:59:59 CLS Outpatient JOEL BOCANEGRA MD [facility] SDC PILONIDAL CYST [id number] 09/29/2012 14:59:00 09/29/2012 23:59:59 CLS Outpatient JOEL BOCANEGRA MD [facility] PREOP PILONIDAL CYST [id number] 12/01/2014 05:24:00 Document Registration [id number] 12/01/2014 05:24:00 Document Registration [id number] 12/01/2014 05:24:00 Document Registration
--- NOTE | 2017-04-09 21:15 | ED Cough/URI ---
General Chief Complaint: Abdominal/GI Problems Stated Complaint: HEADACHE/VOMITING Nursing Triage Note: PATIENT STATES THAT HE HAS HAD A COLD FOR 2 WEEKS. AT THAT TIME HE QUIT SMOKING. HE HAS HAD A PAK TODAY AND TODAY VOMITTED 1X. HE DOES HAVE BODY ACHES AND CHILLS. HE SAW HIS PCP TODAY AND WAS TOLD HE HAD STREP THOUGH HE WAS NOT TESTED. HE WAS STARTED ON KEFLEX. HE TOOK KEFLEX AT 1930. HE VOMITTED ONE HOUR LATER. HE CLAIMS HE DID TAKE IT ON AN EMPTY STOMACH. 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 HAS NOT TAKEN ANYTHING FOR SYMPTOMS PT IS SMOKER, HAS NOT SMOKED SINCE COLD SYMPTOMS BEGAN PCP: [facility] Allergies and Home Medications Allergies Coded Allergies: No Known Drug Allergies (Unverified , 04/24/09) Home Medications Amoxicillin/Potassium Clav 1 Each Tablet, 1 EACH PO BID, #20 Prescribed by: SINGH MULLER on 04/09/17 2204 Docusate Sodium 100 Mg Capsule, 100 MG PO BID, #60 Prescribed by: MARTIR MARIE on 11/16/15 1033 Fluticasone Propionate 9.9 Ml [place].susp, 2 SPRAYS NS BID, #1 Prescribed by: SINGH MULLER on 04/09/17 2204 Hydrocodone Bit/Acetaminophen 1 Each Tablet, 1 TAB PO Q4H PRN for MODERATE PAIN , #30 Prescribed by: MARTIR MARIE on 11/16/15 1033 Loratadine/Pseudoephedrine 1 Each Tab.er.12h, 1 EACH PO BID, #20 Prescribed by: SINGH MULLER on 04/09/17 2204 Methylprednisolone 4 Mg Tab.ds.pk, 4 MG PO UD, #1 Prescribed by: SINGH MULLER on 04/09/17 2204 Tramadol HCl 50 Mg Tablet, 50 MG PO Q8H, #20 Ref 0 Prescribed by: JAZZY LUNDBERG on 05/24/16 2306 Constitutional: see HPI EENTM: see HPI, nose congestion, throat pain Respiratory: see HPI, cough (SLIGHT) Cardiovascular: no symptoms reported Gastrointestinal: see HPI, No abdominal pain, nausea, vomiting Genitourinary: no symptoms reported Musculoskeletal: other (BODY ACHES) Skin: no symptoms reported Psychiatric/Neurological: Headache (FRONTAL/SINUS HEADACHE) Hematologic/Lymphatic: No Symptoms Reported Immunological/Allergic: no symptoms reported Past [id number]-[id number] Hx Patient Social History Alcohol Use: Denies Use Recreational Drug Use: Yes Drug of Choice: MARIJUANA Smoking Status: Current Everyday Smoker Type Used: Cigarettes 2nd Hand Smoke Exposure: Yes Recent Foreign Travel: No Contact w/Someone Who Travel: No Recent Infectious Disease Expo: No Recent Hopitalizations: No Immunizations Up To Date Tetanus Booster (TDap): Less than 5yrs PED Vaccines UTD: Yes Date of Pneumonia Vaccine: Jan 07, 2013 Date of Influenza Vaccine: Nov 09, 2014 Seasonal Allergies Seasonal Allergies: No Surgeries History of Surgeries: Yes (PILONIDAL CYST/ABSCESS x2, DENTAL SURGERY,) Respiratory History of Respiratory Disorde: Yes (X 1 ACUTE BRONCHITIS) Currently Using CPAP: No Currently Using BIPAP: No Cardiovascular History of Cardiac Disorders: Yes (MILD VIRAL PERICARIDITIS/MYOCARDITIS ) Neurological History of Neurological Disord: No Reproductive System Hx Reproductive Disorders: No Sexually Transmitted Disease: No HIV/AIDS: No Genitourinary History of Genitourinary Disor: No Gastrointestinal History of Gastrointestinal Di: No Musculoskeletal History of Musculoskeletal Dis: No Endocrine History of Endocrine Disorders: No HEENT History of HEENT Disorders: Yes (DENTAL SURGERY) Cancer History of Cancer: No Psychosocial History of Psychiatric Problem: Yes (DOES NOT COMPLY WITH MEDICATIONS) Behavioral Health Disorders: ADD/ADHD, Depression Integumentary History of Skin or Integumenta: Yes (PILONIDAL CYST/ABSCESS) Blood Transfusions History of Blood Disorders: No Adverse Reaction to a Blood Tr: No Family Medical History Significant Family History: No Pertinent Family Hx Family Medial History: FH: lung cancer grandmother Physical Exam Vital Signs Vital Sign - Last 12Hours 04/09/17 20:47 Temp 97.9 Pulse 86 Resp 20 B/P (MAP) 132/85 (101) Pulse Ox 96 Capillary Refill : Less Than 3 Seconds General Appearance: WD/WN, no apparent distress, obese HEENT: PERRL/EOMI, pharyngeal erythema (MILD), other (TM'S OBSCURED BY CERUMEN. NASAL MUCOSAL EDEMA AND CLEAR RHINORRHEA. MAXILLARY AND FRONTAL SINUS TENDERNESS/PRESSURE. 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, no motor/sensory deficits, alert, normal mood/affect, oriented x 3 Skin: normal color, warm/dry Progress/Results/Core Measures Suspected Sepsis Recent Fever Within 48 Hours: No Infection Criteria Present: Suspected New Infection New/Unexplained Altered Menta: No Sepsis Screen: No Definite Risk Sepsis Diagnosis: SIRS Temperature:97.9 Pulse: 86 Respiratory Rate: 20 Laboratory Tests 04/09/17 21:28: White Blood Count 18.7H Blood Pressure 132 /85 Mean: 101 Laboratory Tests 04/09/17 21:28: Platelet Count 414H Results/Orders Lab Results Laboratory Tests Test 04/09/17 21:22 04/09/17 21:28 Range/Units Group A Streptococcus Screen NEGATIVE NEGATIVE White Blood Count 18.7 H 4.3-11.0 10^3/uL Red Blood Count 5.38 4.35-5.85 10^6/uL Hemoglobin 16.4 13.3-17.7 G/DL Hematocrit 45 40-54 % Mean Corpuscular Volume 84 80-99 FL Mean Corpuscular Hemoglobin 31 25-34 PG Mean Corpuscular Hemoglobin Concent 36 32-36 G/DL Red Cell Distribution Width 12.2 10.0-14.5 % Platelet Count 414 H 130-400 10^3/uL Mean Platelet Volume 9.9 7.4-10.4 FL Neutrophils (%) (Auto) 80 H 42-75 % Lymphocytes (%) (Auto) 12 12-44 % Monocytes (%) (Auto) 7 0-12 % Eosinophils (%) (Auto) 1 0-10 % Basophils (%) (Auto) 0 0-10 % Neutrophils # (Auto) 15.0 H 1.8-7.8 X 10^3 Lymphocytes # (Auto) 2.2 1.0-4.0 X 10^3 Monocytes # (Auto) 1.3 H 0.0-1.0 X 10^3 Eosinophils # (Auto) 0.1 0.0-0.3 10^3/uL Basophils # (Auto) 0.1 0.0-0.1 10^3/uL Neutrophils % (Manual) 80 % Lymphocytes % (Manual) 17 % Monocytes % (Manual) 3 % Eosinophils % (Manual) 0 % Basophils % (Manual) 0 % Band Neutrophils 0 % Blood Morphology Comment NORMAL Monoscreen NEGATIVE NEGATIVE My Orders Orders - SINGH MULLER DO Cbc With Automated Diff (04/09/17 21:01) Monotest (04/09/17 21:01) Rapid Strep A Screen (04/09/17 21:01) Manual Differential (04/09/17 21:28) Ceftriaxone Injection (Rocephin Injectio (04/09/17 22:00) Methylprednisolone Sod Succ (Solu-Medrol (04/09/17 21:59) Lidocaine 1% Injection (Xylocaine 1% Inj (04/09/17 22:00) Lidocaine 1% (Xylocaine 1%) (04/09/17 22:14) Medications Given in ED Current Medications Medications Dose Ordered Sig/Ericka Route Start Time Stop Time Status Last Admin Dose Admin Ceftriaxone Sodium 1,000 mg ONCE ONCE IM 04/09/17 22:00 04/09/17 22:31 DC 04/09/17 22:22 1,000 MG Lidocaine HCl 2.1 ml ONCE ONCE INJ 04/09/17 22:00 04/09/17 22:31 DC 04/09/17 22:22 2.1 ML Vital Signs/I&O Vital Sign - Last 12Hours 04/09/17 04/09/17 20:47 22:26 Temp 97.9 97.9 Pulse 86 86 Resp 20 20 B/P (MAP) 132/85 (101) Pulse Ox 96 96 Capillary Refill : Less Than 3 Seconds Blood Pressure Mean: 101 Departure Impression Impression: Primary Impression: Sinusitis Additional Impression: Pharyngitis Disposition: HOME, SELF-CARE Condition: Stable Departure-Patient Inst. Referrals: [facility] (PCP/Family) Primary Care Physician Patient Instructions: Sinus Headache (DC), Sinusitis, Adult (DC) Add. Discharge Instructions: OP KEFLEX LOTS OF CLEAR LIQUIDS TYLENOL 1 GRAM/ MOTRIN 800 MG 4 TIMES A DAY FOR PAIN OR FEVER FOLLOW UP WITH [facility] IN 3-4 DAYS IF NO BETTER All discharge instructions reviewed with patient and/or family. Voiced understanding. Scripts Methylprednisolone (Medrol) 4 Mg Tab.ds.pk 4 MG PO UD, #1 PKG Prov: SINGH MULLER DO 04/09/17 Fluticasone Propionate (Flonase Allergy Relief) 9.9 Ml [place].susp 2 SPRAYS NS BID, #1 SPRAY Prov: SINGH MULLER DO 04/09/17 Loratadine/Pseudoephedrine (Claritin-D 12 Hour Tablet) 1 Each Tab.er.12h 1 EACH PO BID, #20 TAB Prov: SINGH MULLER DO 04/09/17 Amoxicillin/Potassium Clav (Augmentin 875-125 Tablet) 1 Each Tablet 1 EACH PO BID for INFECTION, #20 TAB Prov: SINGH MULLER DO 04/09/17 Work/School Note: Work Release Form Date Seen in the Emergency Department: Apr 09, 2017 Return to Work: Apr 11, 2017 SINGH MULLER DO Apr 09, 2017 21:15
[2017-04-09 21:36] LABS: BASOPHILS # (AUTO) 0.1 10^3/uL (0.0-0.1); BASOPHILS % (AUTO) 0 % (0-10); EOSINOPHILS # (AUTO) 0.1 10^3/uL (0.0-0.3); EOSINOPHILS % (AUTO) 1 % (0-10); HEMATOCRIT 45 % (40-54); HEMOGLOBIN 16.4 G/DL (13.3-17.7); LYMPHOCYTES # (AUTO) 2.2 X 10^3 (1.0-4.0); LYMPHOCYTES % (AUTO) 12 % (12-44); MEAN CORPUSCULAR HEMOGLOBIN 31 PG (25-34); MEAN CORPUSCULAR HGB CONC 36 G/DL (32-36); MEAN CORPUSCULAR VOLUME 84 FL (80-99); MEAN PLATELET VOLUME 9.9 FL (7.4-10.4); MONOCYTES # (AUTO) 1.3 X 10^3 (0.0-1.0); MONOCYTES % (AUTO) 7 % (0-12); NEUTROPHILS % (AUTO) 80 % (42-75); PLATELET COUNT 414 10^3/uL (130-400); RED BLOOD COUNT 5.38 10^6/uL (4.35-5.85); RED CELL DISTRIBUTION WIDTH 12.2 % (10.0-14.5); WHITE BLOOD COUNT 18.7 10^3/uL (4.3-11.0)
[2017-04-09 21:52] LABS: BAND NEUTROPHILS 0 %; BASOPHILS % (MANUAL) 0 %; EOSINOPHILS % (MANUAL) 0 %; LYMPHOCYTES % (MANUAL) 17 %; MONOCYTES % (MANUAL) 3 %; NEUTROPHILS % (MANUAL) 80 %; RBC MORPH NORMAL
[2017-04-09] MEDS ORDERED: methylPREDNISolone 125 MG (Solu-MEDROL) VIAL IM STA (21:59)
[2017-04-09] MEDS ORDERED: LIDOCAINE 1% INJ 20 ML (XYLOCAINE) VIAL INJ ONE (22:00)
[2017-04-09] MEDS ORDERED: cefTRIAXone 1 GM (ROCEPHIN) VIAL IM ONE (22:00)
[2017-04-09] MEDS ORDERED: METH4TAB PO (22:04)
[2017-04-09] MEDS ORDERED: LORA1TAB59 PO (22:04)
[2017-04-09] MEDS ORDERED: FLUT9.9S NS (22:04)
[2017-04-09] MEDS ORDERED: AMOX-358 PO (22:04)
[2017-04-09] MEDS ORDERED: LIDOCAINE 1% INJ 50 ML (XYLOCAINE) VIAL ONE (22:14)
[2017-04-09 22:26] VITALS: BP 132/85
== END 2017-04-09 22:26 | disposition home or self-care (01) ==
LOC: EDUNIT# 20:38 → ER 20:39
DX: J32.9 Chronic sinusitis, unspecified (principal); J02.9 Acute pharyngitis, unspecified; F90.9 Attention-deficit hyperactivity disorder, unspecified type; F32.9 Major depressive disorder, single episode, unspecified; F12.10 Cannabis abuse, uncomplicated; F17.210 Nicotine dependence, cigarettes, uncomplicated; Z87.09 Personal history of other diseases of the respiratory system; Z79.52 Long term (current) use of systemic steroids; Z80.1 Family history of malignant neoplasm of trachea, bronchus and lung
CPT/HCPCS: 36415; 85007; 85027; 86308; 87430; 96372; 99284

== ENCOUNTER 2018-02-25 08:14 | Emergency (ER) | payer SELFPAY ==
[~2018-02-25] VITALS: Ht 180.3 cm; Wt 113.4 kg
[~2018-02-25 08:14] MED LIST changes: +AMOX-358 PO; +FLUT9.9S NS; -INDO25CA PO; +INDO25CA15 PO; +LORA1TAB59 PO; +METH4TAB PO
--- OUTSIDE RECORDS SUMMARY | 2018-02-25 08:19 | XMS REPORT ---
Author Author NIVIA ENRRIQUE Organization [facility] Address [address] [place] [address] Care Team Providers Care Lead Worker Of Housekeeping And Laundry Name Role Phone NIVIA, ENRRIQUE Unavailable PROBLEMS Type Condition ICD9-CM Code SNA65-VQ Code Onset Dates Condition Status SNOMED Code Problem Cellulitis and abscess of unspecified site 682.9 Active 607197481 Problem Acute upper respiratory infections of unspecified site 465.9 Active 17253830 Problem Esophageal reflux 530.81 Active 035951732 Problem Cannabis use disorder, mild, abuse F12.10 Active 67132027 Problem Attention deficit hyperactivity disorder (ADHD), combined type F90.2 Active 006778445 Problem Allergic rhinitis, cause unspecified 477.9 Active 52189807 Problem Acute pharyngitis 462 Active 305555233 Problem Viral warts, unspecified 078.10 Active 85758672 Problem Depressive disorder, not elsewhere classified 311 Active 59450720 Problem 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 Active 590850617 Problem Other, multiple, and unspecified sites, insect bite, nonvenomous, without mention of infection 919.4 Active 053298123 Problem Rash and other nonspecific skin eruption 782.1 Active 823220258 Problem Plantar fascial fibromatosis 728.71 Active 82966074 Problem Vomiting alone 787.03 Active 366515069 Problem Other psoriasis 696.1 Active 1686563 Problem Cough 786.2 Active 07868297 Problem Pilonidal cyst without mention of abscess 685.1 Active 56494609 ALLERGIES No Known Allergies ENCOUNTERS Encounter Location Date Diagnosis [facility] [id number] [address] Oct, Attention deficit hyperactivity disorder (ADHD), combined type F90.2 and Cannabis use disorder, mild, abuse F12.10 [facility] [address] [facility] [id number] [address] Mar, Pilonidal cyst L05.91 and Pharyngitis due to other organism J02.8 [facility] [id number] [place] [address] Mar, Acute nasopharyngitis J00 [facility] [address] [place] [address] Aug, Attention deficit hyperactivity disorder (ADHD), combined type F90.2 [facility] [id number] [place] [address]- [address] July, Attention deficit hyperactivity disorder (ADHD), combined type F90.2 [id number] [place] [address]- [address]99 Jun, Attention deficit hyperactivity disorder (ADHD), combined type F90.2 [place] [id number] [place] [address]- 5557 Jun, Attention deficit hyperactivity disorder (ADHD), combined type F90.2 [place] [id number] [place] [address]- [address]645 Jun, Attention deficit hyperactivity disorder (ADHD), combined type F90.2 [facility] [address] [place] [address]- 5[address] May, Fracture of right elbow, with routine healing, subsequent encounter S42.401D [place] [id number] [place] [address]- 7887 May, [facility] [id number] [place] [address]- 7858 Apr, [facility] [address] [place] [address] Apr, Other specified bacterial agents as the cause of diseases classified elsewhere B96.89 and Acute sinusitis, unspecified J01.90 [facility] [id number] [place] [address]- 5958 Apr, [facility] [address] [facility] [id number] [place] [address] Feb, [facility] [address] [place] [address] Jan, [facility] [address] [place] [address] Jan, [facility] [id number] [place] [address] Dec, [facility] [id number] Nov, Attention deficit hyperactivity disorder (ADHD), combined type F90.2 [facility] [address] [place] [address] Sep, [facility] [address] [place] [address] 27[address] Jun, [facility] [address] [address] May, [facility] [address], [place] [address] Apr, [facility] [address], [place] [address] Mar, [facility] [address], [place] [address] Feb, [facility] [address], [place] [address] Jan, [facility] [address] [address] Jan, Attention deficit hyperactivity disorder (ADHD), combined type F90.2 [facility] [address], [place] [address] Nov, [facility] [address], [place] [address] Oct, [facility] [address] [facility] [id number] [place] [address] 0[address] Sep, [facility] [address] [facility] [id number] [place] [address]- 8[address] Aug, Attention deficit disorder (ADD) without hyperactivity 314.00 [facility] [address] [facility] [id number] [place] [address]- 2233 Jun, [facility] [address] [facility] [id number] [place] [address]- 6935 Jun, [facility] [address] [facility] [id number] [place] [address]- 2536 Feb, [facility] [address] [facility] [id number] [place] [address]- 9491 Feb, [facility] [id number] [address] Feb, [facility] [address] [facility] [id number] [place] [address]- 8095 Feb, [facility] [address] [facility] [id number] [place] [address]- 72[address] Jan, [facility] [address] [facility] [id number] [place] [address]- 1797 Jan, [facility] [address] [facility] [id number] [place] [address]- 8555 Jan, [facility] [address] [facility] [id number] [place] [address]- 9492 Jan, [facility] [address] [facility] [id number] [place] [address]- 5521 Jan, [facility] [address] [facility] [id number] [place] [address]- 9647 Jan, [facility] [address] [facility] [id number] [place] [address]- 1046 Jan, [facility] [place] [facility] [address] [id number] [place] [address]- 5822 Jan, [facility] [place] [facility] [address] [id number] [place] [address]- 3877 Dec, [facility] [place] [facility] [address] [id number] [place] [address]- 3190 Dec, [facility] [place] [facility] [address] [id number] [place] [address]- 0613 Oct, [facility] [place] [facility] [address] [id number] [place] [address]- 3[address] Oct, [facility] [place] [facility] [address] [id number] [place] [address]- 7267 Oct, [facility] [place] [facility] [address] [id number] [place] [address]- 6587 Aug, [facility] [place] [facility] [address] [id number] [place] [address]- 0715 Aug, [facility] [place] [facility] [address] [id number] [place] [address]- 7546 Jun, [facility] [place] [facility] [address] [id number] [place] [address]- 8724 Jun, [facility] [place] [facility] [address] [id number] [place] [address]- 0611 May, [facility] [place] [facility] [address] [id number], [place] [address]- 9[address] May, [facility] [place] [facility] [address] [id number] [place] [address]- 7068 Apr, [facility] [place] [facility] [address] [id number] [place] [address]- 4748 Apr, [facility] [place] [facility] [address] [id number] [place] [address]- 8672 Mar, [facility] [place] [facility] [address] [id number] [place] [address]- 1199 Mar, [facility] [place] [facility] [address] [id number] [place] [address]- 1188 Mar, [facility] [place] [facility] [address] [id number] [place] [address]- 5152 Mar, [facility] [place] [facility] [address] [id number] [place] [address]- 5948 Mar, [facility] [place] [facility] [address] [id number] [place] [address]- 3470 Feb, [facility] [place] [facility] [address] [id number] [place] [address]- 4136 Feb, [facility] [place] [facility] [address] [id number] [place] [address]- 1861 Jan, [facility] [place] [facility] [address] [id number] [place] [address]- 4324 Jan, [facility] [place] [facility] [address] [id number] [place] [address]- 1149 Dec, [facility] [place] [facility] [address] [id number] [place] [address]- 6561 Dec, [facility] [place] [facility] [address] [facility] [id number] [place] [address]- 5306 Dec, [facility] [place] [facility] [address] [id number] [place] [address]- 8030 Dec, [facility] [place] [facility] [address] [id number] [place] [address]- 7508 30 Nov, 2012 [facility] [place] [facility] [address] [id number] [place] [address]- 6676 20 Nov, 2012 [facility] [place] [facility] [address] [id number] [place] [address]- 0406 19 Nov, 2012 [facility] [place] [facility] [address] [id number] [place] [address]- 3698 Nov, [facility] [place] [facility] [address] [id number] [place] [address]- 3507 Oct, [facility] [address] [id number] [place] [address]- 3577 Oct, [facility] [address] [id number] [place] [address]- 9321 Sep, [facility] [address] [id number] [place] [address]- 0708 Aug, [facility] [address] [id number] [place] [address]- 5371 Jun, [facility] [address] [id number] [place] [address]- 3381 Jun, [facility] [address] [id number] [place] [address]- 6495 Jun, [facility] [address] [id number] [place] [address]- 7381 Jun, [facility] [address] [id number] [place] [address]- 3895 Jun, [facility] [address] [id number] [place] [address]- 9925 May, [facility] [address] [id number] [place] [address]- 9630 14 May, 2012 [facility] [address] [id number] [place] [address]- 4761 May, [facility] [address] [id number] [place] [address]- 1729 May, [facility] [place] [facility] [address] [id number] [place] [address]- 5205 May, [facility] [address] [id number] [place] [address]- 6211 Apr, [facility] [address] [id number] [place] [address]- 5890 Apr, [facility] [place] [facility] [address] [id number] [place] [address]- 2507 Mar, [facility] [place] [facility] [address] [id number] [place] [address]- 6611 Jan, [facility] [place] [facility] [address] [id number] [place] [address]- 1590 Jan, [facility] [place] [facility] [address] [id number] [place] [address]- 4293 Dec, [facility] [place] [facility] [address] [id number] [place] [address]- 3235 Nov, [facility] [place] [facility] [address] [id number] [place] [address]- 3224 Nov, [facility] [place] [facility] [address] [id number] [place] [address]- 6945 Oct, [facility] [place] [facility] [address] [id number] [place] [address]- 5079 Sep, [facility] [place] [facility] [address] [id number] [place] [address]- 3313 Aug, [facility] [place] [facility] [address] [id number] [place] [address]- 9421 July, [facility] [place] [facility] [address] [id number] [place] [address]- 2989 Jun, [facility] [place] [facility] [address] [id number] [place] [address]- 5800 May, [facility] [place] [facility] [address] [id number] [place] [address]- 7782 May, [facility] [place] [facility] [address] [id number] [place] [address]- 5576 Mar, [facility] [place] [facility] [address] [id number] [place] [address]- 8905 Mar, [facility] [place] [facility] [address] [facility] [id number] [place] [address]- 6866 13 Feb, 2011 [facility] [address] [facility] [id number], [place] [address]- 8799 Feb, [facility] [address] [facility] [id number] [place] [address]- 8956 Jan, [facility] [address] [facility] [id number] [place] [address]- 7626 Jan, [facility] [address] [facility] [id number] [place] [address]- 8737 Dec, [facility] [address] [facility] [id number] [place] [address]- 1543 Nov, [facility] [address] [facility] [id number], [place] [address]- 4[address] Oct, [facility] [address] [facility] [id number], [place] [address]- 8745 May, [facility] [address] [facility] [id number], [place] [address]- 4423 15 Apr, 2010 [facility] [address] [facility] [id number], [place] [address]- 5579 Feb, [facility] [address] [facility] [id number], [place] [address]- 6004 Feb, [facility] [address] [facility] [id number], [place] [address]- 6964 Jan, [facility] [address] [facility] [id number] 49[address] Dec, [facility] [address] [facility] [id number], [place] [address]- 6049 Dec, [facility] [address] [facility] [id number], [place] [address]- 4955 Dec, IMMUNIZATIONS No Known Immunizations SOCIAL HISTORY Never Assessed REASON FOR VISIT BH intake talk about getting back on Adderalmeg Sutherland MA PLAN OF CARE Activity Details Follow Up 4 Weeks Reason: Follow-up VITAL SIGNS Height 70 in 2017-11-08 Weight 249.6 lbs 2017-11-08 Heart Rate 74 bpm 2017-11-08 Respiratory Rate 16 2017-11-08 BMI 35.81 kg/m2 2017-11-08 Blood pressure systolic 120 mmHg 2017-11-08 Blood pressure diastolic 70 mmHg 2017-11-08 MEDICATIONS Medication Instructions Dosage Frequency Start Date End Date Duration Status Adderall XR 10 mg Orally Once a day the morning 1 capsule Oct, 28 days Active RESULTS Name Result Date Reference Range URINE DRUG SCREEN (IN HOUSE) Lot # [id number] Exp date 12/2018 Control + COCAINE Negative AMPH Negative MTD Negative THC POSITIVE OPIATE Negative BENZO Negative PCP Negative BAR Negative OXY Negative MAMP Negative BUP Negative MDMA Negative TCA Not tested PROCEDURES Procedure Date Ordered Result Body Site DRUG TEST PRSMV DIR OPT OBS Nov 08, 2017 INSTRUCTIONS MEDICATIONS ADMINISTERED No Known Medications MEDICAL (GENERAL) HISTORY Type Description Date Surgical History Appendectomy 11/2015 Hospitalization History 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
--- OUTSIDE RECORDS SUMMARY | 2018-02-25 08:20 | XMS REPORT ---
Author Author JAZZY GENAO [facility] Address [address] [place] [address] Care Team Providers Care Broker Assistant Name Role Phone GENAOJAZZY Unavailable PROBLEMS Type Condition ICD9-CM Code [id number] Code Onset Dates Condition Status SNOMED Code Problem Pilonidal cyst without mention of abscess 685.1 Active 41953634 Problem Esophageal reflux 530.81 Active 040364120 Problem Cellulitis and abscess of unspecified site 682.9 Active 675801187 Problem Attention deficit hyperactivity disorder (ADHD), combined type F90.2 Active 907511884 Problem Viral warts, unspecified 078.10 Active 47156112 Problem Acute pharyngitis 462 Active 249601286 Problem Acute upper respiratory infections of unspecified site 465.9 Active 90648426 Problem Depressive disorder, not elsewhere classified 311 Active 21907256 Problem Allergic rhinitis, cause unspecified 477.9 Active 43430658 Problem 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 Active 789309920 Problem Cough 786.2 Active 64649845 Problem Rash and other nonspecific skin eruption 782.1 Active 410529526 Problem Other, multiple, and unspecified sites, insect bite, nonvenomous, without mention of infection 919.4 Active 602020833 Problem Plantar fascial fibromatosis 728.71 Active 39492542 Problem Vomiting alone 787.03 Active 667073178 Problem Other psoriasis 696.1 Active 0209089 ALLERGIES No Known Allergies ENCOUNTERS Encounter Location Date Diagnosis [facility] [address] [address] Mar, Pilonidal cyst L05.91 and Pharyngitis due to other organism J02.8 [facility] [id number] [address] Mar, Acute nasopharyngitis J00 [facility] [address] [address] Aug, Attention deficit hyperactivity disorder (ADHD), combined type F90.2 [facility] [address] [address] July, Attention deficit hyperactivity disorder (ADHD), combined type F90.2 [facility] [address] [address] Jun, Attention deficit hyperactivity disorder (ADHD), combined type F90.2 [facility] [address] [address] Jun, Attention deficit hyperactivity disorder (ADHD), combined type F90.2 [facility] [address] [address] Jun, Attention deficit hyperactivity disorder (ADHD), combined type F90.2 [facility] [address] [address] May, Fracture of right elbow, with routine healing, subsequent encounter S42.401D [facility] [address] [address] May, [facility] [address] [address] Apr, [facility] [id number] [address] Apr, Other specified bacterial agents as the cause of diseases classified elsewhere B96.89 and Acute sinusitis, unspecified J01.90 [facility] [id number] [address] Apr, [facility] [address] [address] Feb, [facility] [id number] [address] Jan, [facility] [address] [address] 08 Jan, 2016 [facility] [address] [address] Dec, [facility] [address] [place] [address] Nov, Attention deficit hyperactivity disorder (ADHD), combined type F90.2 [facility] [address] [address] Sep, [facility] [id number] [place] [address] Jun, [facility] [address] [address] May, [facility] [id number] [address] Apr, [facility] [address] [address] Mar, [facility] [address] [place] [address] Feb, [facility] [address] [address] Jan, [facility] [address] [address] Jan, Attention deficit hyperactivity disorder (ADHD), combined type F90.2 [facility] [id number] [address] Nov, [facility] [id number] [address] Oct, [facility] [address] [address] Sep, [facility] [id number] [address] Aug, Attention deficit disorder (ADD) without hyperactivity 314.00 [facility] [address] [id number] [place] [address] Jun, [facility] [address] [id number] [address] Jun, [facility] [address] [facility] [id number] [place] [address] Feb, [facility] [place] [facility] [address] [id number] [address] Feb, [facility] [place] [facility] [address] [id number] [place] [address] Feb, [facility] [place] [facility] [address] [facility] [id number] [place] [address] Feb, [facility] [place] [facility] [address] [facility] [id number] [address] Jan, [facility] [place] [facility] [address] [id number] [address] Jan, [facility] [place] [facility] [address] [id number] [address] Jan, [facility] [place] [facility] [address] [facility] [id number] [place] [address] Jan, [facility] [place] [facility] [address] [facility] [id number] [address] Jan, [facility] [place] [facility] [address] [id number] [address] Jan, [facility] [place] [facility] [address] [id number] [address] Jan, [facility] [place] [facility] [address] [facility] [id number] [address] Jan, [facility] [place] [facility] [address] [facility] [id number] [address] Dec, [facility] [place] [facility] [address] [id number] [place] [address]- [address]18 Dec, [facility] [place] [facility] [address] [id number] [place] [address] Oct, [facility] [place] [facility] [address] [id number] [place] [address]- [address]34 Oct, [facility] [place] [facility] [address] [id number] [place] [address] 97[address] Oct, [facility] [place] [facility] [address] [id number] [place] [address]- [address] Aug, [facility] [place] [facility] [address] [id number] [place] [address] 9798 Aug, [facility] [place] [facility] [address] [id number] [place] [address] Jun, [facility] [place] [facility] [address] [id number] [place] [address] Jun, [facility] [place] [facility] [address] [id number] [place] [address] May, [facility] [place] [facility] [address] [id number] [place] [address] 1407 May, [facility] [place] [facility] [address] [id number] [place] [address]- 0164 Apr, [facility] [place] [facility] [address] [id number] [place] [address]- [address] Apr, [facility] [place] [facility] [address] [id number] [place] [address] Mar, [facility] [place] [facility] [address] [id number] [place] [address]- [address] Mar, [facility] [place] [facility] [address] [id number] [place] [address]- [address] Mar, [facility] [place] [facility] [address] [id number] [place] [address]- 7[address] Mar, [facility] [place] [facility] [address] [id number] [place] [address]- [address] Mar, [facility] [place] [facility] [address] [id number] [place] [address]- [address] Feb, [facility] [place] [facility] [address] [id number] [place] [address]- 7785 Feb, [facility] [place] [facility] [address] [id number] [place] [address]- [address] Jan, [facility] [place] [facility] [address] [id number] [place] [address]- 94[address] Jan, [facility] [place] [facility] [address] [id number] [place] [address]- 3058 Dec, [facility] [place] [facility] [address] [id number] [place] [address]- 8943 Dec, [facility] [place] [facility] [address] [id number] [place] [address]- 0804 Dec, [facility] [place] [facility] [address] [id number] [place] [address]- 23[address] Dec, [facility] [place] [facility] [address] [id number] [place] [address]- [address] 30 Nov, 2012 [facility] [place] [facility] [address] [id number] [place] [address]- 1633 Nov, [facility] [place] [facility] [address] [id number] [address]- [address]697 Nov, [facility] [place] [facility] [address] [id number] [place] [address]- 1093 Nov, [facility] [place] [facility] [address] [id number] [address] 8199 Oct, [facility] [place] [facility] [address] [id number] [place] [address]- [address] 15 Oct, 2012 [facility] [place] [facility] [address] [id number] [place] [address]- [address] 17 Sep, 2012 [facility] [address] [id number] [place] [address]- 6567 Aug, [facility] [place] [facility] [address] [id number] [place] [address]- 9[address] 24 Jun, 2012 [facility] [address] [id number] [place] [address]- 2862 Jun, [facility] [place] [facility] [address] [id number] [place] [address]- 4707 Jun, [facility] [place] [facility] [address] [id number] [place] [address]- 4917 Jun, [facility] [place] [facility] [address] [id number] [place] [address]- 1629 Jun, [facility] [address] [id number] [place] [address]- 1118 May, [facility] [place] [facility] [address] [id number] [place] [address]- 4025 May, [facility] [place] [facility] [address] [id number] [place] [address]- 1219 May, [facility] [place] [facility] [address] [id number] [place] [address]- 7556 May, [facility] [place] [facility] [address] [id number] [place] [address]- 6160 May, [facility] [place] [facility] [address] [id number] [place] [address]- 1433 Apr, [facility] [place] [facility] [address] [id number] [place] [address]- 9227 Apr, [facility] [place] [facility] [address] [id number] [place] [address]- 6548 Mar, [facility] [place] [facility] [address] [id number] [place] [address]- 2444 Jan, [facility] [place] [facility] [address] [id number] [place] [address]- 9060 Jan, [facility] [place] [facility] [address] [id number] [place] [address]- 2686 08 Dec, 2011 [facility] [place] [facility] [address] [id number] [place] [address] 2546 11 Nov, 2011 [facility] [place] [facility] [address] [id number] [place] [address]- 6[address] 10 Nov, 2011 [facility] [address] [id number] [place] [address]- 3973 15 Oct, 2011 [facility] [place] [facility] [address] [id number] [place] [address]- 4326 Sep, [facility] [address] [id number] [place] [address]- 5164 Aug, [facility] [address] [id number] [place] [address]- 9476 July, [facility] [address] [id number] [place] [address]- [address]395 Jun, [facility] [address] [id number] [place] [address]- 5528 May, [facility] [place] [facility] [address] [id number] [place] [address]- 7476 May, [facility] [address] [id number] [place] [address]- 5[address] Mar, [facility] [place] [facility] [address] [id number] [place] [address]- 6601 Mar, [facility] [place] [facility] [address] [id number] [place] [address]- 7940 13 Feb, 2011 [facility] [place] [facility] [address] [id number] [place] [address]- 7597 13 Feb, 2011 [facility] [place] [facility] [address] [id number] [address] 25[address] Jan, [facility] [address] [address] 25[address] Jan, [facility] [address] [address]- [address] Dec, [facility] [address] [address]- [address] Nov, [facility] [id number] [place] [address] Oct, [facility] [address] [address] 2546 May, [facility] [id number] [place] [address] 2546 Apr, [facility] [address] [address]- 1416 Feb, [facility] [id number] [address]- 2546 Feb, [facility] [id number] [place] [address]- [address] Jan, [facility] [address] [address] 2546 Dec, [facility] [address] [address]- 09[address] Dec, [facility] [address] [address]- [address] Dec, IMMUNIZATIONS No Known Immunizations SOCIAL HISTORY Never Assessed REASON FOR VISIT cough, congestion. been sick for 2 weeks. [email or web address] PLAN OF CARE Activity Details Follow Up prn Reason: VITAL SIGNS Height 70 in 2017-04-04 Weight 230.2 lbs 2017-04-04 Temperature 98.3 degrees Fahrenheit 2017-04-04 Heart Rate 78 bpm 2017-04-04 Respiratory Rate 20 2017-04-04 BMI 33.03 kg/m2 2017-04-04 Blood pressure systolic 120 mmHg 2017-04-04 Blood pressure diastolic 76 mmHg 2017-04-04 MEDICATIONS Medication Instructions Dosage Frequency Start Date End Date Duration Status Adry [phone] MG Not-Taking Adderall XR 30 MG Orally Once a day 2 capsules 24h Aug, 28 days Not-Taking Hydrocodone-Acetaminophen 5-325 MG Orally every 6 hrs 1 tablet as needed 6h Not-Taking RESULTS No Results PROCEDURES No Known procedures INSTRUCTIONS MEDICATIONS ADMINISTERED No Known Medications MEDICAL (GENERAL) HISTORY Type Description Date Surgical History Appendectomy 11/2015 Hospitalization History 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
--- OUTSIDE RECORDS SUMMARY | 2018-02-25 08:21 | XMS REPORT ---
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 Name Role Phone PRINCESS Irby Unavailable PROBLEMS Type Condition ICD9-CM Code CVA72-FE Code Onset Dates Condition Status SNOMED Code Problem Pilonidal cyst without mention of abscess 685.1 Active 49509590 Problem Esophageal reflux 530.81 Active 979777379 Problem Cellulitis and abscess of unspecified site 682.9 Active 726254324 Problem Attention deficit hyperactivity disorder (ADHD), combined type F90.2 Active 566032200 Problem Viral warts, unspecified 078.10 Active 11973373 Problem Acute pharyngitis 462 Active 570736494 Problem Acute upper respiratory infections of unspecified site 465.9 Active 17240160 Problem Depressive disorder, not elsewhere classified 311 Active 53444060 Problem Allergic rhinitis, cause unspecified 477.9 Active 44174269 Problem 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 Active 632007076 Problem Cough 786.2 Active 32261667 Problem Rash and other nonspecific skin eruption 782.1 Active 888414844 Problem Other, multiple, and unspecified sites, insect bite, nonvenomous, without mention of infection 919.4 Active 630938683 Problem Plantar fascial fibromatosis 728.71 Active 12866267 Problem Vomiting alone 787.03 Active 834975095 Problem Other psoriasis 696.1 Active 1944292 ALLERGIES No Information ENCOUNTERS Encounter Location Date Diagnosis [facility] [address] [address] Mar, Pilonidal cyst L05.91 and Pharyngitis due to other organism J02.8 [facility] [id number] [address] Mar, Acute nasopharyngitis J00 [facility] [address] [address] Aug, Attention deficit hyperactivity disorder (ADHD), combined type F90.2 [facility] [address] [address] July, Attention deficit hyperactivity disorder (ADHD), combined type F90.2 [facility] [address] [address] Jun, Attention deficit hyperactivity disorder (ADHD), combined type F90.2 [facility] [address], [place] [address] Jun, Attention deficit hyperactivity disorder (ADHD), combined type F90.2 [facility] [address] [address] Jun, Attention deficit hyperactivity disorder (ADHD), combined type F90.2 [facility] [address] [address] May, Fracture of right elbow, with routine healing, subsequent encounter S42.401D [facility] [address] [address] May, [facility] [address] [address] Apr, [facility] [id number] [address] Apr, Other specified bacterial agents as the cause of diseases classified elsewhere B96.89 and Acute sinusitis, unspecified J01.90 [facility] [id number] [address] Apr, [facility] [id number] [address] Feb, [facility] [id number] [address] Jan, [facility] [address] [place] [address] 08 Jan, 2016 [facility] [address] [place] [address] Dec, [facility] [address] [place] [address] Nov, Attention deficit hyperactivity disorder (ADHD), combined type F90.2 [facility] [id number] [place] [address] Sep, [facility] [id number] [place] [address] Jun, [facility] [id number] [place] [address] May, [facility] [address] [place] [address] Apr, [facility] [address] [address] Mar, [facility] [id number] [place] [address] Feb, [facility] [id number] [address] [address] Jan, [facility] [id number] [address] Jan, Attention deficit hyperactivity disorder (ADHD), combined type F90.2 [facility] [id number], [place] [address] Nov, [facility] [id number] [address] Oct, [facility] [id number] [address] Sep, [facility] [id number] [address] Aug, Attention deficit disorder (ADD) without hyperactivity 314.00 [facility] [address] [facility] [id number] [place] [address] Jun, [facility] [place] [facility] [address] [facility] [id number], [place] [address] Jun, [facility] [place] [facility] [address] [facility] [id number], [place] [address] Feb, [facility] [place] [facility] [address] [id number], [place] [address] Feb, [facility] [place] [facility] [address] [facility] [id number] [place] [address] Feb, [facility] [place] [facility] [address] [facility] [id number], [place] [address] Feb, [facility] [place] [facility] [address] [facility] [id number], [place] [address] Jan, [facility] [place] [facility] [address] [facility] [id number], [place] [address] Jan, [facility] [place] [facility] [address] [facility] [id number], [place] [address] Jan, [facility] [place] [facility] [address] [facility] [id number], [place] [address] Jan, [facility] [place] [facility] [address] [facility] [id number], [place] [address] Jan, [facility] [place] [facility] [address] [facility] [id number][place] [address] Jan, [facility] [place] [facility] [address] [facility] [id number][place] [address] Jan, [facility] [place] [facility] [address] [facility] [id number], [place] [address] Jan, [facility] [place] [facility] [address] [facility] [id number], [place] [address] Dec, [facility] [place] [facility] [address] [facility] [id number] [place] [address]- 119[address] Dec, [facility] [address] [id number] [place] [address]- [address] Oct, [facility] [place] [facility] [address] [id number] [place] [address] Oct, [facility] [address] [id number] [place] [address] Oct, [facility] [place] [facility] [address] [id number] [place] [address]- [address] Aug, [facility] [address] [id number] [place] [address] Aug, [facility] [place] [facility] [address] [id number] [place] [address] Jun, [facility] [place] [facility] [address] [id number] [place] [address] Jun, [facility] [address] [id number] [place] [address]- [address] May, [facility] [place] [facility] [address] [id number] [place] [address] May, [facility] [address] [id number] [place] [address]- [address] Apr, [facility] [place] [facility] [address] [id number] [place] [address] Apr, [facility] [place] [facility] [address] [id number] [place] [address]- [address] Mar, [facility] [place] [facility] [address] [id number] [place] [address]- [address] Mar, [facility] [place] [facility] [address] [id number] [place] [address] Mar, [facility] [place] [facility] [address] [id number] [place] [address] Mar, [facility] [place] [facility] [address] [id number] [place] [address]- [address] Mar, [facility] [place] [facility] [address] [id number] [place] [address]- 23[address] Feb, [facility] [place] [facility] [address] [id number] [place] [address] Feb, [facility] [place] [facility] [address] [id number] [place] [address]- [address] Jan, [facility] [place] [facility] [address] [id number] [place] [address]- 7[address] Jan, [facility] [place] [facility] [address] [id number] [place] [address]- 98[address] Dec, [facility] [place] [facility] [address] [id number] [place] [address]- 77[address] Dec, [facility] [place] [facility] [address] [id number] [place] [address]- 0642 Dec, [facility] [place] [facility] [address] [id number] [place] [address]- 9970 Dec, [facility] [place] [facility] [address] [id number] [place] [address]- 8[address] 30 Nov, 2012 [facility] [place] [facility] [address] [id number] [place] [address] Nov, [facility] [place] [facility] [address] [id number], [place] [address] Nov, [facility] [place] [facility] [address] [id number] [place] [address]- 8142 Nov, [facility] [place] [facility] [address] [id number] [place] [address]- 5[address] Oct, [facility] [place] [facility] [address] [id number] [place] [address]- [address] 15 Oct, 2012 [facility] [place] [facility] [address] [id number] [place] [address]- 7671 17 Sep, 2012 [facility] [address] [id number] [place] [address]- [address] Aug, [facility] [address] [id number] [place] [address]- [address] 24 Jun, 2012 [facility] [address] [id number] [place] [address]- 0797 Jun, [facility] [address] [id number] [place] [address]- 3[address] Jun, [facility] [address] [id number] [place] [address]- 5065 Jun, [facility] [address] [id number] [place] [address]- 4966 Jun, [facility] [address] [id number] [place] [address]- 7901 May, [facility] [address] [id number] [place] [address]- 7[address] May, [facility] [address] [id number] [place] [address]- 2814 May, [facility] [address] [id number] [place] [address]- 3999 May, [facility] [address] [id number] [place] [address]- [address]239 May, [facility] [address] [id number] [place] [address]- 4093 Apr, [facility] [place] [facility] [address] [id number] [place] [address]- 0696 Apr, [facility] [place] [facility] [address] [id number] [place] [address]- [address] Mar, [facility] [address] [id number] [place] [address]- 6007 Jan, [facility] [address] [id number] [place] [address]- 8901 Jan, [facility] [place] [facility] [address] [id number] [place] [address]- 68[address] 08 Dec, 2011 [facility] [place] [facility] [address] [id number] [place] [address]- [address]326 11 Nov, 2011 [facility] [place] [facility] [address] [id number] [place] [address]- 9009 10 Nov, 2011 [facility] [place] [facility] [address] [id number] [place] [address]- 3462 15 Oct, 2011 [facility] [place] [facility] [address] [id number] [place] [address]- 5216 Sep, [facility] [place] [facility] [address] [id number] [place] [address]- 5996 Aug, [facility] [place] [facility] [address] [id number] [place] [address]- 5156 July, [facility] [place] [facility] [address] [id number] [place] [address]- 1030 17 Jun, 2011 [facility] [place] [facility] [address] [id number] [place] [address]- 0228 May, [facility] [place] [facility] [address] [id number] [place] [address]- 6376 May, [facility] [place] [facility] [address] [id number] [place] [address]- 6154 Mar, [facility] [place] [facility] [address] [id number] [place] [address]- 8686 Mar, [facility] [place] [facility] [address] [id number] [place] [address]- 6543 13 Feb, 2011 [facility] [place] [facility] [address] [id number] [place] [address]- 3984 13 Feb, 2011 [facility] [place] [facility] [address] [id number], [place] [address] Jan, [facility] [address] [address] 2546 Jan, [facility] [address], [place] [address] Dec, [facility] [address] [address] Nov, [facility] [address], [place] [address] Oct, [facility] [address], [place] [address] May, [facility] [id number] [place] [address] 25[address] Apr, [facility] [address] [address] Feb, [facility] [address], [place] [address] Feb, [facility] [address], [place] [address] Jan, [facility] [address] [address] Dec, [facility] [address], [place] [address] Dec, [facility] [address] [address] Dec, IMMUNIZATIONS No Known Immunizations SOCIAL HISTORY Never Assessed REASON FOR VISIT adderall 09/05/2016 PLAN OF CARE VITAL SIGNS MEDICATIONS Medication Instructions Dosage Frequency Start Date End Date Duration Status Adderall XR 30 MG Orally Once a day 2 capsules 24h Aug, 28 days Active RESULTS No Results PROCEDURES No Known procedures INSTRUCTIONS MEDICATIONS ADMINISTERED No Known Medications MEDICAL (GENERAL) HISTORY Type Description Date Surgical History Appendectomy 11/2015 Hospitalization History 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
--- OUTSIDE RECORDS SUMMARY | 2018-02-25 08:22 | XMS REPORT | Continuity of Care Document ---
Author Author [facility] Organization [facility] Address Unknown Phone Unavailable Care Team Providers Care [employer] Consultant Name Role Phone [facility] Insurance Providers Payer Name Policy Number Subscriber Name Relationship Zhanna Maciasr [id number] Rebecca Horvath Self / Same As Patient Advance Directives Directive Response Recorded Date Advance Directives N 11/04/12 7:34am Problems No Known Problems or Medical conditions. Social History History Response Recorded Date/Time Alcohol Use Denies Use 11/04/12 7:34am Recreational Drug Use N 11/04/12 7:34am Allergies, Adverse Reactions, Alerts Allergen Type Severity Reaction Last Updated No Known Drug Allergies 04/24/09 Medications Medication Dose Units Route Sig Qty Days Hydrocodone Bit/Acetaminophen (Hydrocodon-Acetaminophen 5-325) 1 - 2 Each PO Q6H PRN 10 Bupropion HCl (Wellbutrin) 1 Tab PO BID 60 Amphet Asp/Amphet/D-Amphet (Adderall Xr 25 Mg Capsule) 50 Mg PO Acetaminophen/Hydrocodone Bitart (Lortab 5 Mg) 1 - 2 Ea PO Q4HR PRN Response Recorded Date/Time Status not known Unknown Results Test Date Result Interp. Ref. Range Alanine Aminotransferase (ALT/SGPT) October 06, 2010 3:17pm 39 U/L N 30-65 Albumin October 06, 2010 3:17pm 4.4 G/DL N 3.4-5.0 Alkaline Phosphatase October 06, 2010 3:17pm 275 U/L N 60-350 Aspartate Amino Transf (AST/SGOT) October 06, 2010 3:17pm 18 U/L N 15-37 BUN/Creatinine Ratio October 06, 2010 3:17pm 13 - Blood Urea Nitrogen October 06, 2010 3:17pm 10 MG/DL N 7-18 Calcium Level October 06, 2010 3:17pm 9.4 MG/DL N 8.5-10.1 Carbon Dioxide Level October 06, 2010 3:17pm 29 MMOL/L N 21-32 Chloride Level October 06, 2010 3:17pm 101 MMOL/L N 101-110 Creatinine October 06, 2010 3:17pm 0.8 MG/ DL N 0.6-1.3 Glucose Level October 06, 2010 3:17pm 89 MG /DL N 74-106 Hematocrit October 06, 2010 3:17pm 44 % N 37-52 Hemoglobin October 06, 2010 3:17pm 16.0 G/ DL N 12.4-17.1 Lipase October 06, 2010 3:17pm 67 U/L L 73-393 Mean Corpuscular Hemoglobin October 06, 2010 3:17pm 30 PG N 25-34 Mean Corpuscular Hemoglobin Concent October 06, 2010 3:17pm 37 G/DL H 32-36 Mean Corpuscular Volume October 06, 2010 3:17pm 83 FL N 77-95 Mean Platelet Volume October 06, 2010 3:17pm 10.1 FL N 7.4-10.4 Platelet Count October 06, 2010 3:17pm 332 10^3/uL N 130-400 Potassium Level October 06, 2010 3:17pm 3.9 MMOL/L N 3.6-5.0 Red Blood Count October 06, 2010 3:17pm 5.29 10^6/uL N 4.30-5.45 Red Cell Distribution Width October 06, 2010 3:17pm 12.8 % N 10.0-14.5 Sodium Level October 06, 2010 3:17pm 137 MMOL/L N 135-145 Total Bilirubin October 06, 2010 3:17pm 0.3 MG/DL N 0.0-1.0 Total Protein October 06, 2010 3:17pm 7.7 G /DL N 6.4-8.2 White Blood Count October 06, 2010 3:17pm 14.9 10^3/uL H 4.3-11.0 Procedures Procedure Code Date REMOVE PILONIDAL CYST SIMPLE 46906 MRSA Screen 09/29/12 Encounters Encounter Location Date/Time Registered Emergency Room [facility] 11/04/12 7:25am Departed Emergency Room [facility] 06/02 1:41pm
--- OUTSIDE RECORDS SUMMARY | 2018-02-25 08:22 | XMS REPORT | Continuity of Care Document ---
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 Insurance Providers Payer Name Policy Number Subscriber Name Relationship Zhanna Maciasr [id number] Rebecca Horvath Self / Same As Patient Advance Directives Directive Response Recorded Date Advance Directives N 12/01/12 2:25pm Problems No Known Problems or Medical conditions. Social History History Response Recorded Date/Time Alcohol Use Denies Use 12/01/12 2:25pm Recreational Drug Use N 12/01/12 2:25pm Allergies, Adverse Reactions, Alerts Allergen Type Severity Reaction Last Updated No Known Drug Allergies 04/24/09 Medications Medication Dose Units Route Sig Qty Days Bupropion HCl (Wellbutrin) 1 Tab PO BID 60 Amphet Asp/Amphet/D-Amphet (Adderall Xr 25 Mg Capsule) 50 Mg PO Hydrocodone Bit/Acetaminophen (Hydrocodon-Acetaminophen 5-325) 1 - 2 Each PO Q6H PRN 10 Acetaminophen/Hydrocodone Bitart (Lortab 5 Mg) 1 - [...] Procedure Code Date REMOVE PILONIDAL CYST SIMPLE 91734 MRSA Screen 09/29/12 Encounters Encounter Location Date/Time Departed Emergency Room [facility] 2:21pm
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
--- NOTE | 2018-02-25 09:44 | ED Upper Extremity ---
General Chief Complaint: Upper Extremity Stated Complaint: LEFT ARM INJ Source: patient, family (mom) Exam Limitations: no limitations (OLGA LIDIA ZAPATA) History of Present Illness Date Seen by Provider: Feb 25, 2018 Time Seen by Provider: 09:28 Initial Comments Patient presents to ER by private conveyance with chief complaint that at 2:00 this morning, 7 hours ago he was skateboarding and fell off his skateboard onto his outstretched hands and knees now has pain in his left thumb first metacarpal , left wrist lateral side. He's never had any fracture or surgery on his left upper extremity. He has broke his right arm in the past. He has no significant medical history does not take any medicines. He has no numbness tingling or weakness. He is right-handed. (OLGA LIDIA ZAPATA) Allergies and Home Medications Allergies Coded Allergies: No Known Drug Allergies (Unverified , 04/24/09) Home Medications Hydrocodone/Acetaminophen 1 Each Tablet, 1 EACH PO Q6H PRN for PAIN-MODERATE Prescribed by: OMEGA HUERTA on 02/25/18 1055 Patient Home Medication List Home Medication List Reviewed: Yes (OLGA LIDIA ZAPATA) Review of Systems Constitutional: No chills, No diaphoresis EENTM: No ear discharge, No ear pain Respiratory: No cough, No short of breath Cardiovascular: No chest pain, No edema Gastrointestinal: No abdominal pain, No constipation, No diarrhea Genitourinary: No discharge, No dysuria Musculoskeletal: No back pain, No joint pain (OLGA LIDIA ZAPATA) Past Naomzeq-Iapcit-Znprar Hx Patient Social History Alcohol Use: Denies Use Recreational Drug Use: Yes Drug of Choice: MARIJUANA Smoking Status: Former Smoker Type Used: Cigarettes 2nd Hand Smoke Exposure: Yes Recent Hopitalizations: No (OLGA LIDIA ZAPATA) Immunizations Up To Date Tetanus Booster (TDap): Less than 5yrs PED Vaccines UTD: Yes Date of Pneumonia Vaccine: Jan 07, 2013 Date of Influenza Vaccine: Nov 09, 2014 (OLGA LIDIA ZAPATA) Seasonal Allergies Seasonal Allergies: No (OLGA LIDIA ZAPATA) Past Medical History Surgeries: Yes (PILONIDAL CYST/ABSCESS x2, DENTAL SURGERY,) Respiratory: Yes (X 1 ACUTE BRONCHITIS) Currently Using CPAP: No Currently Using BIPAP: No Cardiac: Yes (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 ) Neurological: No Reproductive Disorders: No Sexually Transmitted Disease: No HIV/AIDS: No Genitourinary: No Gastrointestinal: No Musculoskeletal: No Endocrine: No HEENT: Yes (DENTAL SURGERY) Cancer: No Psychosocial: Yes (DOES NOT COMPLY WITH MEDICATIONS) ADD/ADHD, Depression Integumentary: Yes (PILONIDAL CYST/ABSCESS) Blood Disorders: No Adverse Reaction/Blood Tranf: No (OLGA LIDIA ZAPATA) Family Medical History FH: lung cancer grandmother No Pertinent Family Hx (OLGA LIDIA ZAPATA) Physical Exam Vital Signs Vital Signs - First Documented 02/25/18 09:23 Temp 98.0 Pulse 90 Resp 16 B/P (MAP) 126/64 (84) Pulse Ox 98 O2 Delivery Room Air (OMEGA HUERTA APRN) Vital Signs Capillary Refill : (OLGA LIDIA ZAPATA) Height, Weight, BMI Height: 5'11.00" Weight: 217lbs. 0oz. 98.114744mj; 29.1 BMI Method:Stated General Appearance: WD/WN, no apparent distress HEENT: PERRL/EOMI, pharynx normal Cardiovascular: normal peripheral pulses, regular rate, rhythm, no edema, other (capillary refill less than 2 seconds, brisk left hand) Respiratory: no respiratory distress, no accessory muscle use Elbow/Forearm: pain (pain on the lateral radial side), swelling (scant) Wrist: Yes normal inspection, Yes normal ROM, Yes pain (first metacarpal and near the anatomic snuffbox as well as the radial ulnar distal wrist.), Yes soft tissue tenderness Neurologic/Psychiatric: no motor/sensory deficits, alert, normal mood/affect, oriented x 3 Skin: normal color, warm/dry (OLGA LIDIA ZAPATA) Progress/Results/Core Measures Results/Orders Medications Given in ED Current Medications Medications Dose Ordered Sig/Ericka Route Start Time Stop Time Status Last Admin Dose Admin Ketorolac Tromethamine 30 mg ONCE ONCE IM 02/25/18 09:45 02/25/18 09:46 DC 02/25/18 09:46 30 MG (OMEGA HUERTA APRN) Vital Signs/I&O 02/25/18 09:23 Temp 98.0 Pulse 90 Resp 16 B/P (MAP) 126/64 (84) Pulse Ox 98 O2 Delivery Room Air (OMEGA HUERTA APRN) Progress Progress Note : Time: 09:44 Progress Note Toradol and x-rays of the left elbow wrist and hand (OLGA LIDIA ZAPATA) Departure Communication (Admissions) 1052-I've taken over care of the patient. X-rays reviewed. Findings suggest radial head fracture. Nondisplaced. Patient was placed in a posterior long-arm splint using 4 inch Ortho-Glass and given a sling. He'll need orthopedic follow- up. He remains neurovascularly intact distal to the injury. Pain is well controlled at this time. This affects the left arm. He is right-hand dominant. (OMEGA HUERTA APRN) Impression Primary Impression: Radial head fracture, closed Qualified Codes: S52.125A - Nondisplaced fracture of head of left radius, initial encounter for closed fracture Disposition: 01 HOME, SELF-CARE Condition: Stable Departure-Patient Inst. Decision time for Depature: 10:53 (OMEGA HUERTA APRN) Referrals: BERYL BIRMINGHAM MD [facility] (PCP/Family) Primary Care Physician ARI AGGARWAL MD,MATT YEE MD,JOEL VELAZQUEZ,CHARLIE Natarajan MD Patient Instructions: Elbow Fracture (DC) Add. Discharge Instructions: 1. Call an orthopedic surgeon of your choosing to make an appointment for follow -up. If an orthopedist does not have the ability to see you based on insurance, call [facility] to make an appointment to be seen and they can usually arrange orthopedic evaluation through their clinic. Keep this splint on clean and dry for the next 2-3 weeks until the cast is placed or orthopedics allows you to take it off. Pain medication as directed. All discharge instructions reviewed with patient and/or family. Voiced understanding. Scripts Hydrocodone/Acetaminophen ([place] 5-325 Tablet) 1 Each Tablet 1 EACH PO Q6H PRN for PAIN-MODERATE MDD 10, #20 TAB Prov: OMEGA HUERTA APRN 02/25/18 Work/School Note: Work Release Form Date Seen in the Emergency Department: Feb 25, 2018 Return to Work: Feb 26, 2018 Other Restrictions Listed Below: No use of left arm until cleared. OLGA LIDIA ZAPATA Feb 25, 2018 09:44 OMEGA HUERTA APRN Feb 25, 2018 10:58
[2018-02-25] MEDS ORDERED: KETOROLAC 30 MG/ML VIAL IM ONE (09:45)
--- NOTE | 2018-02-25 10:27 | Diagnostic Imaging Report ---
INDICATION: Fall with left wrist pain AP, oblique, and lateral views of the left wrist are obtained. No fracture or acute bony abnormality is seen. IMPRESSION: Negative left wrist. Dictated by: Dictated on workstation # [id number]
--- NOTE | 2018-02-25 10:31 | Diagnostic Imaging Report ---
INDICATION: Fall with left elbow pain AP, oblique, and lateral views of the left elbow are obtained at 1034 AM. There is elevation of the posterior fat pad compatible with hemarthrosis. There is some irregularity and linear lucency in the radial head and neck suspicious for a nondisplaced fracture. There is no other bony abnormality seen. IMPRESSION: Elevation of the posterior fat pad compatible with hemarthrosis. There is some irregularity and faint linear lucency in the radial neck and head, compatible with a nondisplaced fracture. Followup is recommended. Dictated by: Dictated on workstation # [id number]
--- NOTE | 2018-02-25 10:36 | Diagnostic Imaging Report ---
INDICATION: Fall with left hand pain. AP, oblique, and lateral views of left hand are obtained. FINDINGS: No fracture or acute bony abnormality is seen. Joint spaces are unremarkable. IMPRESSION: Negative left hand. Dictated by: Dictated on workstation # [id number]
[2018-02-25] MEDS ORDERED: HYDR-4226 PO (10:55)
[2018-02-25 11:07] VITALS: BP 126/64
== END 2018-02-25 11:07 | disposition home or self-care (01) ==
LOC: EDUNIT# 08:14 → ER 08:15
DX: S52.125A Nondisplaced fracture of head of left radius, initial encounter for closed fracture (principal); F90.9 Attention-deficit hyperactivity disorder, unspecified type; F98.8 Other specified behavioral and emotional disorders with onset usually occurring in childhood and adolescence; F32.9 Major depressive disorder, single episode, unspecified; F12.10 Cannabis abuse, uncomplicated; Z87.891 Personal history of nicotine dependence; Z80.1 Family history of malignant neoplasm of trachea, bronchus and lung; Z98.890 Other specified postprocedural states; V00.131A Fall from skateboard, initial encounter; Y93.51 Activity, roller skating (inline) and skateboarding
CPT/HCPCS: 29105; 73080; 73110; 73130

== ENCOUNTER 2018-12-22 09:14 | Emergency (ER) | payer SELFPAY ==
[~2018-12-22] VITALS: Ht 180.3 cm; Wt 114.5 kg
[~2018-12-22 09:14] MED LIST changes: +HYDR-4226 PO
--- NOTE | 2018-12-22 09:53 | ED Lower Extremity ---
General Chief Complaint: Lower Extremity Stated Complaint: R FOOT PAIN Nursing Triage Note: Pt to ED in wheelchair. Pt reports moving a couch yesterday and stepping over a ledge with R foot landing on a log. Pt reports R foot then hyper extended and pt heard popping noise and was then unable to bear weight. Pt has visible swelling to R foot and ankle. Nursing Sepsis Screen: No Definite Risk Source: patient Exam Limitations: no limitations (NICKI METCALF STUDENT) History of Present Illness Date Seen by Provider: Dec 22, 2018 Time Seen by Provider: 09:40 Initial Comments Patient reports to the ED stating he was moving a couch 24 hour ago and stepped onto an elevated surface, which caused extreme dorsiflexion of the foot. The patient rates the pain an 8 out of 10. Any movement makes the pain worse and nothing alleviates the pain. Patient is currently unable to place body weight on the affected foot. Location Injury Occurred: outside moving furniture Onset: yesterday Severity: moderate Pain/Injury Location: right foot, right ankle Method of Injury: other (dorsiflexion of foot to Tibia) Modifying Factors: Improves With Immobilization; Worse With Movement; Improves With Rest Associated Symptoms: none (NICKI METCALF STUDENT) Allergies and Home Medications Allergies Coded Allergies: No Known Drug Allergies (Unverified , 04/24/09) Home Medications Hydrocodone/Acetaminophen 1 Each Tablet, 1 EACH PO Q6H PRN for PAIN-MODERATE Prescribed by: OMEGA HUERTA on 02/25/18 1055 Patient Home Medication List Home Medication List Reviewed: Yes (ANYI INGRAM MD) Review of Systems Constitutional: no symptoms reported EENTM: no symptoms reported Respiratory: no symptoms reported Cardiovascular: no symptoms reported Gastrointestinal: no symptoms reported Genitourinary: no symptoms reported Musculoskeletal: joint pain, joint swelling Skin: no symptoms reported Psychiatric/Neurological: No Symptoms Reported (NICKI METCALF STUDENT) All Other Systems Reviewed Negative Unless Noted: Yes (ANYI INGRAM MD) Past Xairbfi-Enmnmc-Hwzory Hx Past Med/Social Hx: Reviewed Nursing Past Med/Soc Hx (ANYI INGRAM MD) Patient Social History Alcohol Use: Denies Use Recreational Drug Use: Yes Drug of Choice: POT Smoking Status: Former Smoker Type Used: Cigarettes 2nd Hand Smoke Exposure: Yes Recent Foreign Travel: No Contact w/Someone Who Travel: No Recent Infectious Disease Expo: No Recent Hopitalizations: No Physical Abuse: No Sexual Abuse: No (NICKI METCALF STUDENT) Immunizations Up To Date Tetanus Booster (TDap): Less than 5yrs PED Vaccines UTD: Yes Date of Pneumonia Vaccine: Jan 07, 2013 Date of Influenza Vaccine: Nov 09, 2014 (NICKI METCALF) Seasonal Allergies Seasonal Allergies: No (NICKI METCALF) Past Medical History Surgeries: Yes (PILONIDAL CYST/ABSCESS x2, DENTAL SURGERY,) Respiratory: Yes (X 1 ACUTE BRONCHITIS) Chronic Bronchitis Currently Using CPAP: No Currently Using BIPAP: No Cardiac: Yes (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 ) Neurological: No Reproductive Disorders: No Sexually Transmitted Disease: No HIV/AIDS: No Genitourinary: No Gastrointestinal: No Musculoskeletal: No Endocrine: No HEENT: Yes (DENTAL SURGERY) Cancer: No Psychosocial: Yes (DOES NOT COMPLY WITH MEDICATIONS) ADD/ADHD, Depression Integumentary: Yes (PILONIDAL CYST/ABSCESS) Blood Disorders: No Adverse Reaction/Blood Tranf: No (NICKI METCALF) Family Medical History Reviewed Nursing Family Hx (ANYI INGRAM MD) FH: lung cancer grandmother No Pertinent Family Hx (NICKI METCALF) Physical Exam Vital Signs Vital Signs - First Documented 12/22/18 09:20 Temp 37.0 Pulse 83 Resp 18 B/P (MAP) 124/79 (94) Pulse Ox 97 O2 Delivery Room Air (ANYI INGRAM MD) Vital Signs Capillary Refill : Less Than 3 Seconds (NICKI METCALF) Height, Weight, BMI Height: 5'11.00" Weight: 250lbs. 0oz. [id number]; 35.00 BMI Method:Stated General Appearance: mild distress HEENT: PERRL/EOMI Cardiovascular: regular rate, rhythm, no edema, no gallop, no JVD, no murmur Respiratory: chest non-tender, lungs clear, normal breath sounds, no respiratory distress, no accessory muscle use Gastrointestinal: normal bowel sounds, non tender Ankles: right ankle bone tenderness, right ankle ecchymosis, right ankle limited range of motion, right ankle pain, right ankle soft tissue tenderness, right ankle swelling Feet: right foot bone tenderness, right foot ecchymosis, right foot limited range of motion, right foot soft tissue tenderness, right foot swelling Neurologic/Tendon: normal sensation Neurologic/Psychiatric: no motor/sensory deficits, alert, normal mood/affect, oriented x 3 Skin: normal color (NICKI METCALF STUDENT) General Appearance: WD/WN Cardiovascular: regular rate, rhythm, no murmur Respiratory: lungs clear, normal breath sounds Ankles: right ankle other (tenderness and swelling to the lateral aspect of the right ankle. Mild ecchymosis to the distal aspect.) Neurologic/Psychiatric: alert, oriented x 3 (ANYI INGRAM MD) Progress/Results/Core Measures Results/Orders My Orders Orders - ANYI NIGRAM MD Ankle, Right, 3 Views (12/22/18 09:46) Hi Bandage (12/22/18 10:21) Crutches (12/22/18 10:21) Steplite (12/22/18 10:21) (ANYI INGRAM MD) Vital Signs/I&O 12/22/18 09:20 Temp 37.0 Pulse 83 Resp 18 B/P (MAP) 124/79 (94) Pulse Ox 97 O2 Delivery Room Air (ANYI INGRAM MD) Blood Pressure Mean: 94 Progress Progress Note : Progress Note Seen and evaluated the patient and agree with above except as indicated. Have directed the plan of care. Patient twisted his ankle yesterday and had pain overnight and today. Note swelling to the lateral aspect. Denies other injury. X-ray right ankle ordered and done. Question of avulsion-type fracture lateral aspect to ligament insertion. We will give Hi wrap, boot and crutches. He will follow-up with Sixto Amaya at the [facility] on . Discharged home with return precautions. Patient verbalize understanding instructions and agreement with plan. (ANYI INGRAM MD) Departure Impression Primary Impression: Closed avulsion fracture of right calcaneus Qualified Codes: S92.034A - Nondisplaced avulsion fracture of tuberosity of right calcaneus, initial encounter for closed fracture Disposition: HOME, SELF-CARE Condition: Improved Departure-Patient Inst. Decision time for Depature: 10:28 (ANYI INGRAM MD) Referrals: [facility] (PCP/Family) Primary Care Physician Patient Instructions: Ankle Fracture (DC), Ankle Sprain (DC) Add. Discharge Instructions: All discharge instructions reviewed with patient and/or family. Voiced understanding. Use boot and crutches as needed for comfort. Elevate the foot and leg today to decrease swelling. You may take ibuprofen 600 mg every 8 hours as needed for pain. You may also take Tylenol/acetaminophen 1000 mg every 8 hours as needed for pain. Follow-up with Sixto Amaya at the clinic for orthopedic evaluation this week. Return for worse pain, swelling, weakness or other concerns as needed. You may use ice packs to area of concern 20 minutes per hour as needed. Use boot when walking but otherwise you can be out of the boot. Work/School Note: Work Release Form Date Seen in the Emergency Department: Dec 22, 2018 Return to Work: Dec 23, 2018 Other Restrictions Listed Below: Use boot until released by orthopedics and crutches as needed. NICKI METCALF STUDENT Dec 22, 2018 09:53 ANYI INGRAM MD Dec 22, 2018 10:28
--- NOTE | 2018-12-22 10:10 | Diagnostic Imaging Report ---
EXAMINATION: Right ankle radiograph, 3 views. COMPARISON: None. HISTORY: 23-year-old male, fall. Right ankle pain. FINDINGS: There is a normal variant os peroneum. There is a fairly linear-appearing area of very high attenuation and potential ossification lateral to the calcaneus on image 1 which may relate to a small mildly displaced fracture. This potentially could reflect an avulsion related fracture. Recommend correlation for focal pain at this exact site. There is no additional potential acute fracture identified. The ankle mortise is unremarkable in alignment. There is no tibiotalar joint effusion. IMPRESSION: 1. Small probable ossification adjacent to the lateral aspect of the calcaneus suspicious for a small displaced fracture which could be an avulsion related fracture. Recommend correlation for focal pain at the exact site. Dictated by: Dictated on workstation # [id number]
[2018-12-22 10:44] VITALS: BP 124/79
== END 2018-12-22 10:44 | disposition home or self-care (01) ==
LOC: EDUNIT# 09:14 → ER 09:17
DX: S92.001A Unspecified fracture of right calcaneus, initial encounter for closed fracture (principal); F90.9 Attention-deficit hyperactivity disorder, unspecified type; F32.9 Major depressive disorder, single episode, unspecified; Z87.891 Personal history of nicotine dependence; Z77.22 Contact with and (suspected) exposure to environmental tobacco smoke (acute) (chronic); Z80.1 Family history of malignant neoplasm of trachea, bronchus and lung; X50.1XXA Overexertion from prolonged static or awkward postures, initial encounter
CPT/HCPCS: 73610

== ENCOUNTER 2020-02-28 22:01 | Emergency (ER) | payer SELFPAY ==
[~2020-02-28] VITALS: Ht 180 cm; Wt 107.5 kg
[~2020-02-28 22:01] MED LIST changes: -INDO25CA15 PO; +INDO25CA99 PO; -TRAM50TA2 PO; +TRM50T PO
[2020-02-28 22:15] VITALS: BP 133/77
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
== END 2020-02-28 23:45 | disposition home or self-care (01) ==
LOC: EDUNIT# 22:01 → ER 22:04
DX: F32.9 Major depressive disorder, single episode, unspecified (principal); Z77.22 Contact with and (suspected) exposure to environmental tobacco smoke (acute) (chronic); Z80.1 Family history of malignant neoplasm of trachea, bronchus and lung
CPT/HCPCS: 99284

== ENCOUNTER 2021-07-06 10:04 | Emergency (ER) | payer SELFPAY ==
[~2021-07-06 10:04] MED LIST changes: -SULF1TAB35 PO; +SULF1TAB38 PO
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
[2021-07-06] MEDS ORDERED: ONDANSETRON 4 MG (ZOFRAN) ORAL DISSOLVE TAB PO ONE (11:15)
[2021-07-06] MEDS ORDERED: HYDROcodone/APAP 5 MG/325 MG (LORTAB) TAB PO ONE (11:15)
== END 2021-07-06 10:40 | disposition left against medical advice (07) ==
LOC: EDUNIT# 10:04 → ER 10:06
DX: G43.909 Migraine, unspecified, not intractable, without status migrainosus (principal)